=== PATIENT | male | born 1940 | race Caucasian/White ===

== ENCOUNTER → 2024-11-07 | Outpatient (CLI) | payer MEDICARE ==
[2024-11-07 13:13] LABS: African American GFR (CKD) 85 (>60 ml/min/1.73 sqM); Blood Urea Nitrogen 18 mg/dL (9-20); Non-African American GFR(CKD) 74 (>60 ml/min/1.73 sqM)
--- NOTE | 2024-11-07 14:44 | CT ---
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 C/o numb ness. TECHNIQUE: CTA scan of the head and neck is performed with IV Contrast, patient injected with 120 mL of Isovue 370, axial images are obtained, coronal and sagittal reformatted images are reviewed. 3D r econstructed images are created on an independent workstation and reviewed. CT DLP: 759.[address] CTDI: mGy Automated exposure control for dose reduction was used. NASCET criteria was used in interpretation of this exam? FINDINGS: There is marked diffuse arteriosclerotic calcifications involving the thoracic aortic arch and origin s of the brachiocephalic vessels as well as diffusely through the common carotid arteries and carotid bifurcations. There are moderate approximately 50% stenoses of the origins of the left subclavian artery and right subclavian artery. There is scattered calcification in the common carotid arteries but no significant stenosis. There are severe calcified plaque in the right carotid bifurcations. There is severe proximal ascendi ng percent hemodynamically significant stenoses of both the proximal right and left internal carotid arteries. There is evidence for calcified eccentric plaque with ulcerations. Vertebral arteries are patent. IMPRESSION: 1. Heavily calcified plaque involving the thoracic arch and origins of the brachiocephalic vessels re sulting in approximately 50% stenoses of the origin of the left subclavian and right subclavian arter ies. 2. Scattered moderate calcified plaque involving the common internal carotid arteries as well as the carotid bifurcations resulting in hemodynamically significant approximately 70% stenoses of the bilat eral proximal internal carotid arteries. The heavily calcified plaques appear to have central ulcerat ions. [facility], , 11/07/2024 2:42 PM
== END | disposition home or self-care (01) ==
LOC: RADCTMAIN 11:58
PROVIDERS: ATTEND Internal Medicine Interventional Cardiology
DX: I65.23 Occlusion and stenosis of bilateral carotid arteries (principal); I77.1 Stricture of artery
CPT/HCPCS: 82565; 84520; 70498; 36415; Q9967

== ENCOUNTER 2025-01-16 06:08 | Day surgery (SDC) | payer MEDICARE ==
[2025-01-13 14:39] VITALS: BMI 32.3
[~2025-01-16 06:08] MED LIST: ALPRAZolam 0.25 MG TAB PO PRN; ALPRAZolam 0.5 MG TAB PO PRN; ASPIRIN 325 MG TAB PO PRN; HEPARIN SODIUM,PORCINE (1 ML) 2,500 UNIT in SODIUM CHLORIDE 0.9% 250 ML IRRIGATION PRN; HEPARIN SODIUM,PORCINE 10,000 UNIT in SODIUM CHLORIDE 0.9% 1,000 ML IRRIGATION PRN; ZOLPIDEM 5 MG TAB PO PRN
[2025-01-16 06:42] LABS: Glucose,Whole Blood 138 mg/dL (70-110)
[2025-01-16] MEDS: SODIUM CHLORIDE 0.9% 1,000 ML IV ONE (06:45)
[2025-01-16] MEDS: IV FLUID CONTINUATION 1,000 ML IV ONE (06:45)
[2025-01-16] MEDS: SODIUM CHLORIDE 0.9% 1,000 ML in EMPTY BAG 1 BAG IV ONE (06:52)
[2025-01-16] MEDS: MIDAZOLAM 2 MG/2 ML VIAL IVP ONE (08:29)
[2025-01-16] MEDS: LIDOCAINE 1% INJ 10MG/ML (20 ML MDV) SQ ONE (08:41)
[2025-01-16] MEDS: HEPARIN SODIUM 1,000 UN/ML (10ML VL) IVP ONE (08:50)
[2025-01-16] MEDS: CLOPIDOGREL 75 MG TAB PO ONE (08:56)
[2025-01-16] MEDS: IOPAMIDOL-370 100ML BTL INJ ONE (09:38)
[2025-01-16] MEDS ORDERED: IPRATROPIUM BROMIDE 0.06% NASAL SPRAY (15 ML) EA NOSTRIL PRN (09:45)
[2025-01-16] MEDS ORDERED: NALOXONE 0.4 MG/ML 1 ML VIAL IVP PRN (09:46)
--- NOTE | 2025-01-16 09:51 | P.PCN ---
Date of Procedure: 01/16/25 Operative Findings: PERCUTANEOUS PERIPHERAL INTERVENTION Performing physician Bird Byers M.D. Procedure performed 1. Successful stenting of the left subclavian artery using 10 mm x 38 mm iCAST stent with reduction of stenosis from 9 9% to 0% with adjunctive use of IVUS 2. An aortic arch angiogram and left subclavian angiogram 3. Selective right common femoral artery angiogram and ultrasound-guided access of the right common femoral artery Indication Symptomatic 84-year-old gentleman with critical left subclavian stenosis Approach Right common femoral artery Complications None Level of sedation Moderate with a sedation time of 60 minutes Procedure description After attending informed consent the patient was brought to the cardiac lab where the right common femoral artery was cannulated using micropuncture technique under ultrasound guidance a micropuncture wire passed easily and init iated with a 6 Haitian subsequently 7 Haitian shuttle sheath 90 cm at the right common femoral artery with adjunctive use of stiff Glidewire. At that point we did an aortic arch angiogram using a 6 Haitian pigtail catheter with power injection and using digital subtraction. That revealed type III aortic arch with a critical disease involving the left subclavian artery. I did select the left subclavian artery using a JB2 catheter with 035 stiff Glidewire. Subsequently the wire was advanced into the distal left subclavian artery. Then I did selective left subclavian angiogram with injection through the sheath. Subsequently I did IVUS of the left subclavian artery which revealed heavily calcified vessel with a diameter around 10 mm. Predilatation was performed using 8 mm balloon before I deployed 8 mm x 38 mm stent which was iCAST stent which was postdilated using 10 mm balloon was final angiogram showing excellent angiographic results and the procedure was completed with no complication. Subsequently exchanged my long sheath into short sheath using 035 wire before I did selective right common femoral artery angiogram and close the groin using the Angio-Seal device Postprocedure management 1. Dual antiplatelet therapy 2. Aggressive cholesterol control 3. Risk factors modification 4. Follow-up with the patient
--- NOTE | 2025-01-16 10:15 | IR ---
EXAMINATION TYPE: IR precinct captain brachiocephalic DATE OF EXAM: 01/16/2025 CLINICAL HISTORY: Left arm weakness. TECHNIQUE: Fluoroscopy. COMPARISON: None. FINDINGS: Fluoroscopic guidance was provided during left subclavian stent insertion procedure perfor med by Dr. Byers. A total of 26.2 minutes of fluoroscopic time was utilized during the procedure and 73 spot images was acquired. Images show angiogram pictures. TOTAL DAP = 15.7 Gycm2. IMPRESSION: As Above. [facility], , 01/16/2025 10:12 AM
[2025-01-16 12:28] LABS: Glucose,Whole Blood 181 mg/dL (70-110)
[2025-01-16] MEDS: SODIUM CHLORIDE 0.9% 1,000 ML in EMPTY BAG 1 BAG IV SCH (12:32)
[2025-01-16 13:23] VITALS: RESP 14
[2025-01-16 14:08] VITALS: BP 123/65
[2025-01-16 14:11] VITALS: PULSE 69; TEMP 98.1
[2025-01-16 17:16] LABS: Glucose,Whole Blood 208 mg/dL (70-110)
[2025-01-16] MEDS: ALBUTEROL NEBULIZED 2.5 MG/3 ML INHALATION SCH (19:24)
[2025-01-16] MEDS: SYMBICORT 160-4.5 MCG INHALER INHALATION SCH (19:24)
[2025-01-16] MEDS ORDERED: MONTELUKAST 10 MG TAB PO SCH (21:00)
[2025-01-16] MEDS ORDERED: METOPROLOL TARTRATE 25 MG TAB PO SCH (21:00)
[2025-01-16] MEDS ORDERED: ATORVASTATIN 80 MG TAB PO SCH (21:00)
[2025-01-17] MEDS ORDERED: TIOTROPIUM 2.5 MCG INHALER INHALATION SCH (08:00)
[2025-01-17] MEDS ORDERED: FENOFIBRATE 54 MG TAB PO SCH (09:00)
[2025-01-17] MEDS ORDERED: ASPIRIN 81 MG PO SCH (09:00)
[2025-01-17] MEDS ORDERED: ATORVASTATIN 20 MG TAB PO SCH (09:00)
[2025-01-17] MEDS ORDERED: MULTIVITAMINS, THERA 1 EACH TAB PO SCH (09:00)
[2025-01-17] MEDS ORDERED: CYANOCOBALAMIN 500 MCG TAB PO SCH (09:00)
[2025-01-17] MEDS ORDERED: CLOPIDOGREL 75 MG TAB PO SCH (09:00)
== END 2025-01-16 19:53 | disposition home or self-care (01) ==
LOC: CATHCVL 06:08 → 6NMEDSUR 10:28 → CATHCVL 19:53
PROVIDERS: ATTEND Internal Medicine Interventional Cardiology
DX: I70.8 Atherosclerosis of other arteries (principal)
CPT/HCPCS: 99152; 99153; 76937; 36225; 37236; 37252; C1874; J2250; J2003; J1644; Q9967

== ENCOUNTER 2025-06-15 14:17 | Inpatient (IN) | payer MEDICARE ==
--- NOTE | 2025-06-15 15:11 | ED ---
GI Bleed HPI - General Chief complaint: GI Bleed Stated complaint: GI Bleed Time Seen by Provider: 06/15/25 14:31 Source: patient, EMS, RN notes reviewed Mode of arrival: EMS Limitations: no limitations - History of Present Illness Initial comments: This is an 84-year-old male with history including GI bleed, diverticulosis and DM presenting from [facility] via ER to ER transfer for GI bleed starting this morning. Patient states he awoke with sensation of impending bowel movement, passing a large amount of bright red blood in the toilet that had been ongoing prior to initial ER arrival. Following evaluation, patient states rectal bleeding had stopped, but due to no GI specialist available there, patient was transferred to [facility] for further evaluation and management. Patient endorses use of ASA 81 daily but denies use of Plavix or other blood thinners. Patient states bleeding has recurred since ER arrival at [facility]. Endorses history of bleeding GI polyp that required cauterization. Hemoglobin at [facility] 13.6. Patient denies fever, chills, dizziness, chest pain, dyspnea, significant abdominal pain, N/V, melena, urinary symptoms. MD complaint: gross hematochezia Onset/Timin -: days(s) Quality: painless Consistency: intermittent Context: history of GI bleed Associated Symptoms: denies other symptoms Treatments Prior to Arrival: none - Related Data Home Medications Medication Instructions Recorded Confirmed Albuterol Sulfate [Proair Hfa] 2 puff INHALATION RT-QID PRN 02/25/18 06/15/25 Aspirin [Adult Low Dose Aspirin EC] 81 mg PO DAILY 02/25/18 06/15/25 Cyanocobalamin [Vitamin B-12] 5,000 mcg PO DAILY 02/25/18 06/15/25 Fenofibrate 54 mg PO DAILY 02/25/18 06/15/25 Ipratropium [place] 0.06%Nasal 2 spray EA NOSTRIL DAILY 02/25/18 06/15/25 [Atrovent Nasal 0.06%] Meloxicam 15 mg PO DAILY PRN 02/25/18 06/15/25 Metoprolol Tartrate 25 mg PO BID 02/25/18 06/15/25 Montelukast [Singulair] 10 mg PO HS 02/25/18 06/15/25 Simvastatin 40 mg PO DAILY 02/25/18 06/15/25 Fluticasone/Umeclidin/Vilanter 1 puff INHALATION RT-DAILY 01/02/25 06/15/25 [Trelegy Ellipta 100-62.5-25] Cetirizine HCl [Zyrtec] 10 mg PO DAILY PRN 06/15/25 06/15/25 Levothyroxine Sodium [Synthroid] 50 mcg PO DAILY 06/15/25 06/15/25 Mv-Min/Folic/K1/Lycopen/Lutein 1 tab PO DAILY 06/15/25 06/15/25 [Centrum Silver Men Tablet] Nitroglycerin Sl Tabs [Nitrostat] 0.4 mg SUBLINGUAL Q5M PRN 06/15/25 06/15/25 metFORMIN HCL [Glucophage] 500 mg PO HS 06/15/25 06/15/25 metFORMIN HCL [Glucophage] 750 mg PO BID 06/15/25 06/15/25 Allergies Allergy/AdvReac Type Severity Reaction Status Date / Time No Known Allergies Allergy Verified 06/15/25 15:44 Review of Systems ROS Statement: Those systems with pertinent positive or pertinent negative responses have been documented in the HPI. ROS Other: All systems not noted in ROS Statement are negative. Past Medical History Past Medical History: Diabetes Mellitus, GI Bleed, Hyperlipidemia, Hypertension, Prostate Disorder, Sleep Apnea/CPAP/BIPAP Additional Past Medical History / Comment(s): seasonal allergies, hx rectal b leed with diverticulosis, neuropathy julius feet,no cpap used, NIDDM History of Any Multi-Drug Resistant Organisms: None Reported Past Surgical History: Heart Catheterization With Stent, Joint Replacement, Orthopedic Surgery Additional Past Surgical History / Comment(s): repair torn rotator cuff julius., prostate surgery,(turp) colonoscopy with cauterization , julius hip replaced Past Anesthesia/Blood Transfusion Reactions: No Reported Reaction Date of Last Stent Placement:: 2009 Past Psychological History: No Psychological Hx Reported Smoking Status: Former smoker Past Alcohol Use History: Occasional Past Drug Use History: None Reported - Past Family History Mother Family Medical History: No Reported History General Exam Limitations: no limitations General appearance: alert, in no apparent distress Head exam: Present: atraumatic, normocephalic, normal inspection Eye exam: Present: normal appearance, PERRL, EOMI. Absent: scleral icterus, conjunctival injection, periorbital swelling ENT exam: Present: normal exam, mucous membranes moist Neck exam: Present: normal inspection. Absent: tenderness, meningismus, lymphadenopathy Respiratory exam: Present: normal lung sounds bilaterally. Absent: respiratory distress, wheezes, rales, rhonchi, stridor Cardiovascular Exam: Present: regular rate, normal rhythm, normal heart sounds. Absent: systolic murmur, diastolic murmur, rubs, gallop, clicks GI/Abdominal exam: Present: soft, tenderness (Patient notes minor periumbilical TTP without guarding), normal bowel sounds. Absent: distended, guarding, rebound, rigid Rectal exam: Present: normal rectal tone, heme (+) stool, bloody stool. Absent: black stool, fecal impaction, hemorrhoids, mass, tenderness Extremities exam: Present: normal inspection, full ROM, normal capillary refill. Absent: tenderness, pedal edema, joint swelling, calf tenderness Back exam: Present: normal inspection Neurological exam: Present: alert, oriented X3, CN II-XII intact Psychiatric exam: Present: normal affect, normal mood Skin exam: Present: warm, dry, intact, normal color. Absent: rash Course Vital Signs 06/15/25 06/15/25 14:22 16:25 Temperature 97.7 F Pulse Rate 84 75 Respiratory 18 18 Rate Blood Pressure 109/63 107/58 O2 Sat by Pulse 97 96 Oximetry Medical Decision Making - Medical Decision Making Was pt. sent in by a medical professional or institution (ARMEN Gan, PROCEDURES NURSE, urgent care, hospital, or skilled nursing...) When possible be specific @ -[facility] Did you speak to anyone other than the patient for history (EMS, parent, family, police, friend...)? What history was obtained from this source @ -No Did you review nursing and triage notes (agree or disagree)? Why? @ -I reviewed and agree with nursing and triage notes Were old charts reviewed (outside hosp., previous admission, EMS record, old EKG, old radiological studies, urgent care reports/EKG's, skilled nursing records)? Report findings @ -No old charts were reviewed Differential Diagnosis (chest pain, altered mental status, abdominal pain women, abdominal pain men, vaginal bleeding, weakness, fever, dyspnea, syncope, headache, dizziness, GI bleed, back pain, seizure, CVA, palpatations, mental health, musculoskeletal)? @ -Differential GI Bleed: Esophageal varices, aortoenteric fistula, Crissy-Green, gastritis, peptic ulcer disease, diverticulosis, inflammatory bowel disease, hemorrhoids, fissure, colitis, malignancy, Meckel's diverticulum, this is not meant to be an all- inclusive list. EKG interpreted by me (3pts min.). @ -Not done X-rays interpreted by me (1pt min.). @ -None done CT interpreted by me (1pt min.). @ -None done U/S interpreted by me (1pt. min.). @ -None done What testing was considered but not performed or refused? (CT, X-rays, U/S, labs)? Why? @ -None What meds were considered but not given or refused? Why? @ -None Did you discuss the management of the patient with other professionals (naomi stacy i.e. , PA, PROCEDURES NURSE, lab, RT, psych nurse, social work associate, technical writing lead/mgr, teacher, security officers and guards, telephonic case manager)? Give summary @ -Spoke to Dr. Castellanos who advised to contact Dr. Frazier and Dr. Foley. Dr. Frazier notified who advised consideration for ICU admission due to ongoing BRBPR. Dr. Foley also contacted and advised of patient condition. Was smoking cessation discussed for >3mins.? @ -No Was critical care preformed (if so, how long)? @ -No Were there social determinants of health that impacted care today? How? (Homelessness, low income, unemployed, alcoholism, drug addiction, transportation, low edu. Level, literacy, decrease access to med. care, half-way, rehab)? @ -No Was there de-escalation of care discussed even if they declined (Discuss DNR or withdrawal of care, Hospice)? DNR status @ -No What co-morbidities impacted this encounter? (DM, HTN, Smoking, COPD, CAD, Cancer, CVA, ARF, Chemo, Hep., AIDS, mental health diagnosis, sleep apnea, morbid obesity)? @ -None Was patient admitted / discharged? Hospital course, mention meds given and route, prescriptions, significant lab abnormalities, going to OR and other pertinent info. @ -Lab work notable for hemoglobin 11.9, which is down from 13.[address] [facility]. BUN 28. Stool occult blood positive. No obvious rectal bleeding or external hemorrhoid on examination with blood noted on fingertip. Spoke to Dr. Castellanos from [facility] who advised to contact both Dr. Frazier and Dr. Foley regarding patient. Both physicians were subsequently contacted and advised of patient's condition. Patient is asymptomatic at this time, only noting ongoing bright red blood per rectum. Discussed patient with Dr. Freeman. Undiagnosed new problem with uncertain prognosis? @ -No Drug Therapy requiring intensive monitoring for toxicity (Heparin, Nitro, Insulin, Cardizem)? @ -No Were any procedures done? @ -No Diagnosis/symptom? @ -Bright red blood per rectum Acute, or Chronic, or Acute on Chronic? @ -Acute Uncomplicated (without systemic symptoms) or Complicated (systemic symptoms)? @ -Uncomplicated Side effects of treatment? @ -No Exacerbation, Progression, or Severe Exacerbation? @ -No Poses a threat to life or bodily function? How? (Chest pain, USA, DC, pneumonia, PE, COPD, DKA, ARF, appy, cholecystitis, CVA, Diverticulitis, Homicidal, Suicidal, threat to staff... and all critical care pts) @ -No - Lab Data Result diagrams: 06/15/25 15:34 06/15/25 15:34 Lab Results 06/15/25 06/15/25 06/15/25 Range/Units 15:31 15:34 15:34 WBC 9.29 (4.50-10.00) 10*3/uL RBC 3.80 L (4.40-5.60) 10*6/uL Hgb 11.9 L (13.0-17.0) g/dL Hct 35.9 L (39.6-50.0) % MCV 94.5 (80.0-97.0) fL MCH 31.3 (27.0-32.0) pg MCHC 33.1 (32.0-37.0) g/dL Plt Count 238 (140-440) 10*3/uL MPV 10.4 (9.5-12.2) fL Immature Gran % (Auto) 0.4 % Neutrophils % 66.2 % Lymphocytes % 23.7 % Monocytes % 7.4 % Eosinophils % 1.7 % Basophils % 0.6 % Immature Gran # 0.04 (0.00-0.04) 10*3/uL Neutrophils # 6.14 (1.80-7.70) 10*3/uL Lymphocytes # 2.20 (0.90-5.00) 10*3/uL Monocytes # 0.69 (0.20-1.00) 10*3/uL Eosinophils # 0.16 (0.04-0.35) 10*3/uL Basophils # 0.06 (0.00-0.10) 10*3/uL Manual Slide Review Performed Immature Plt Fraction 4.1 (1.1-6.1) % PT (10.0-12.5) sec INR (<1.2) APTT (22.0-30.0) sec Sodium (137-145) mmol/L Potassium (3.5-5.1) mmol/L Chloride (98-107) mmol/L Carbon Dioxide (22-30) mmol/L Anion Gap mmol/L BUN (9-20) mg/dL Creatinine (0.66-1.25) mg/dL Est GFR (CKD-EPI)AfAm (>60 ml/min/1.73 sqM) Est GFR (CKD-EPI)NonAf (>60 ml/min/1.73 sqM) Glucose (74-99) mg/dL POC Glucose (mg/dL) (70-110) mg/dL POC Glu Digital Operations Analyst ID Calcium (8.4-10.2) mg/dL Total Bilirubin (0.2-1.3) mg/dL AST (17-59) U/L ALT (4-49) U/L Alkaline Phosphatase (38-126) U/L Total Protein (6.3-8.2) g/dL Albumin (3.5-5.0) g/dL Stool Occult Blood Positive (Negative) Blood Type A Negative Blood Type Recheck No Previous Record Bld Type Recheck Status [facility] ONLY 06/15/25 06/15/25 06/15/25 Range/Units 15:34 16:21 16:59 WBC (4.50-10.00) 10*3/uL RBC (4.40-5.60) 10*6/uL Hgb (13.0-17.0) g/dL Hct (39.6-50.0) % MCV (80.0-97.0) fL MCH (27.0-32.0) pg MCHC (32.0-37.0) g/dL Plt Count (140-440) 10*3/uL MPV (9.5-12.2) fL Immature Gran % (Auto) % Neutrophils % % Lymphocytes % % Monocytes % % Eosinophils % % Basophils % % Immature Gran # (0.00-0.04) 10*3/uL Neutrophils # (1.80-7.70) 10*3/uL Lymphocytes # (0.90-5.00) 10*3/uL Monocytes # (0.20-1.00) 10*3/uL Eosinophils # (0.04-0.35) 10*3/uL Basophils # (0.00-0.10) 10*3/uL Manual Slide Review Immature Plt Fraction (1.1-6.1) % PT 11.2 (10.0-12.5) sec INR 1.0 (<1.2) APTT 18.9 L (22.0-30.0) sec Sodium 139 (137-145) mmol/L Potassium 4.9 (3.5-5.1) mmol/L Chloride 106 (98-107) mmol/L Carbon Dioxide 24 (22-30) mmol/L Anion Gap 9 mmol/L BUN 28 H (9-20) mg/dL Creatinine 1.02 (0.66-1.25) mg/dL Est GFR (CKD-EPI)AfAm 78 (>60 ml/min/1.73 sqM) Est GFR (CKD-EPI)NonAf 67 (>60 ml/min/1.73 sqM) Glucose 129 H (74-99) mg/dL POC Glucose (mg/dL) 143 H (70-110) mg/dL POC Glu Digital Operations Analyst ID Belval Christiana Calcium 9.2 (8.4-10.2) mg/dL Total Bilirubin 0.7 (0.2-1.3) mg/dL AST 21 (17-59) U/L ALT 18 (4-49) U/L Alkaline Phosphatase <20 L (38-126) U/L Total Protein 6.1 L (6.3-8.2) g/dL Albumin 3.8 (3.5-5.0) g/dL Stool Occult Blood (Negative) Blood Type Blood Type Recheck Bld Type Recheck Status Disposition Clinical Impression: Hematochezia Disposition: ADMITTED IP TO THIS HOSP Condition: Fair Instructions (If sedation given, give patient instructions): Gastrointestinal Bleeding (ED) Referrals: Vikas Holcomb MD [Primary Care Provider] - 1-2 days Time of Disposition: 15:10 Decision Date: 06/15/25 Decision Time: 15:10
[2025-06-15 15:45] LABS: Basophils # (A) 0.06 10*3/uL (0.00-0.10); Basophils % (A) 0.6 %; Eosinophils # (A) 0.16 10*3/uL (0.04-0.35); Eosinophils % (A) 1.7 %; HCT 35.9 % (39.6-50.0); HGB 11.9 g/dL (13.0-17.0); Immature Platelet Fraction 4.1 % (1.1-6.1); Lymphocytes # (A) 2.20 10*3/uL (0.90-5.00); Lymphocytes % (A) 23.7 %; MCH 31.3 pg (27.0-32.0); MCHC 33.1 g/dL (32.0-37.0); MCV 94.5 fL (80.0-97.0); Monocytes # (A) 0.69 10*3/uL (0.20-1.00); Monocytes % (A) 7.4 %; Neutrophils # (A) 6.14 10*3/uL (1.80-7.70); Neutrophils % (A) 66.2 %; RBC 3.80 10*6/uL (4.40-5.60); RDW 13.5 % (11.5-14.5); WBC 9.29 10*3/uL (4.50-10.00)
[2025-06-15 16:06] LABS: Platelet Count 238 10*3/uL (140-440)
[2025-06-15 16:08] LABS: ALT 18 U/L (4-49); AST 21 U/L (17-59); African American GFR (CKD) 78 (>60 ml/min/1.73 sqM); Albumin 3.8 g/dL (3.5-5.0); Alkaline Phosphatase <20 U/L (38-126); Anion Gap 9 mmol/L; Blood Urea Nitrogen 28 mg/dL (9-20); Calcium 9.2 mg/dL (8.4-10.2); Carbon Dioxide 24 mmol/L (22-30); Chloride 106 mmol/L (98-107); Glucose 129 mg/dL (74-99); Non-African American GFR(CKD) 67 (>60 ml/min/1.73 sqM); Potassium 4.9 mmol/L (3.5-5.1); Sodium 139 mmol/L (137-145); Total Protein 6.1 g/dL (6.3-8.2)
[2025-06-15] MEDS: SODIUM CHLORIDE 0.9% 1,000 ML IV SCH (16:24)
[2025-06-15] MEDS ORDERED: LORATADINE 10 MG TAB PO PRN (16:38)
[2025-06-15] MEDS ORDERED: NITROGLYCERIN SL TABS 0.4 MG TAB SUBLINGUAL PRN (16:38)
[2025-06-15] MEDS ORDERED: ALBUTEROL NEBULIZED 2.5 MG/3 ML INHALATION PRN (16:38)
[2025-06-15] MEDS ORDERED: DEXTROSE 50% SYRINGE 50 ML IVP PRN ×2 (16:39)
[2025-06-15] MEDS ORDERED: HYDROcodone/APAP 5-325MG 1 EACH TAB PO PRN (16:39)
[2025-06-15 16:59] LABS: INR 1.0 (<1.2); Prothrombin Time 11.2 sec (10.0-12.5)
[2025-06-15 17:01] LABS: Glucose,Whole Blood 143 mg/dL (70-110)
[2025-06-15] MEDS: INSULIN LISPRO (HumaLOG) 100 UNIT/ML 10 mL VL SQ SCH (17:01)
[2025-06-15] MEDS: PANTOPRAZOLE 40 MG/10 ML VIAL IVP SCH (17:04)
[2025-06-15 17:19] LABS: Partial Thromboplastin Time 18.9 sec (22.0-30.0)
[2025-06-15] MEDS ORDERED: NALOXONE 0.4 MG/ML 1 ML VIAL IV PRN (17:52)
[2025-06-15 20:09] LABS: Basophils # (A) 0.05 10*3/uL (0.00-0.10); Basophils % (A) 0.4 %; Eosinophils # (A) 0.18 10*3/uL (0.04-0.35); Eosinophils % (A) 1.6 %; HCT 36.5 % (39.6-50.0); HGB 12.1 g/dL (13.0-17.0); Lymphocytes # (A) 2.83 10*3/uL (0.90-5.00); Lymphocytes % (A) 25.3 %; MCH 31.9 pg (27.0-32.0); MCHC 33.2 g/dL (32.0-37.0); MCV 96.3 fL (80.0-97.0); Monocytes # (A) 0.83 10*3/uL (0.20-1.00); Monocytes % (A) 7.4 %; Neutrophils # (A) 7.22 10*3/uL (1.80-7.70); Neutrophils % (A) 64.6 %; Platelet Count 243 10*3/uL (140-440); RBC 3.79 10*6/uL (4.40-5.60); RDW 13.3 % (11.5-14.5); WBC 11.19 10*3/uL (4.50-10.00)
[2025-06-15 20:29] LABS: ALT 18 U/L (4-49); AST 21 U/L (17-59); African American GFR (CKD) 80 (>60 ml/min/1.73 sqM); Albumin 3.7 g/dL (3.5-5.0); Alkaline Phosphatase <20 U/L (38-126); Anion Gap 10 mmol/L; Blood Urea Nitrogen 27 mg/dL (9-20); Calcium 8.8 mg/dL (8.4-10.2); Carbon Dioxide 22 mmol/L (22-30); Chloride 106 mmol/L (98-107); Glucose 129 mg/dL (74-99); Non-African American GFR(CKD) 69 (>60 ml/min/1.73 sqM); Potassium 4.6 mmol/L (3.5-5.1); Sodium 138 mmol/L (137-145); Total Protein 6.0 g/dL (6.3-8.2)
[2025-06-15 22:03] LABS: Glucose,Whole Blood 125 mg/dL (70-110)
[2025-06-15] MEDS: METOPROLOL TARTRATE 25 MG TAB PO SCH (22:06)
[2025-06-15] MEDS: MONTELUKAST 10 MG TAB PO SCH (22:07)
[2025-06-16] MEDS: metFORMIN 500 MG TAB PO SCH ×2
[2025-06-16 00:26] LABS: HCT 37.7 % (39.6-50.0); HGB 12.4 g/dL (13.0-17.0); MCH 31.9 pg (27.0-32.0); MCHC 32.9 g/dL (32.0-37.0); MCV 96.9 fL (80.0-97.0); Platelet Count 258 10*3/uL (140-440); RBC 3.89 10*6/uL (4.40-5.60); RDW 13.4 % (11.5-14.5); WBC 11.25 10*3/uL (4.50-10.00)
--- NOTE | 2025-06-16 04:12 | P.CNPUL ---
History of Present Illness Consult date: 06/16/25 Requesting physician: Noe Dior Reason for consult: other (GI bleed) Chief complaint: Transfer from [facility] History of present illness: Patient is an 84-year-old male with past medical history significant for GI bleed, diverticulosis, colon polyps, CAD with previous stent to the RCA, left subclavian artery stenosis with previous stent, carotid artery stenosis. He also sees Dr. Varela in the pulmonary office for severe COPD. He has an FEV1 48% of predicted. Maintained on DuoNebs [id number] as well as Trelegy inhaler. Transferred from [facility] yesterday after for rectal bleeding. Having multiple large bright red bowel movements. He does take aspirin and Plavix at home. Denies any other anticoagulants or NSAIDs. Denies any nausea, vomiting, hematemesis. Denies any abdominal pain. Blood pressures remain stable. Nontachycardic. He has had an additional 2 bright red bowel movements while at our facility. Has not required any blood product transfusions. Hemoglobin stable at 12.4 g/dL. Most recent labs including a CBC with a WBC count of 11.25, hemoglobin 12.4, platelets 258. CMP: Sodium 138, potassium 4.6, chloride 106, serum bicarb 22, BUN 27, creatinine 1, glucose 129. LFTs unremarkable. Normal saline infusing at 75 mm/h. Patient currently being evaluated in the intensive care unit. Resting comfortably on room air. Asymptomatic. Nontachycardic. Blood pressure 119/54 mmHg. Review of Systems REVIEW OF SYSTEMS: CONSTITUTIONAL: Denies any recent significant weight loss or weight gain. EYES: Denies change in vision. EARS, NOSE, MOUTH, THROAT: Denies headaches, denies sore throat. CARDIOVASCULAR: Denies chest pain, palpitations or syncopal episodes. RESPIRATORY: Denies shortness of breath, cough, congestion or hemoptysis. GASTROINTESTINAL: See HPI GENITOURINARY: Denies hematuria, denies infections. MUSKULOSKELETAL: Denies pain, denies swelling. INTEGUMENTARY: Denies rash, denies eczema. NEUROLOGICAL: Denies recent memory loss, no recent seizure activity. PSYCHIATRIC: Denies anxiety, denies depression. HEMATOLOGIC/LYMPHATIC: Denies anemia, denies enlarged lymph node Past Medical History Past Medical History: Diabetes Mellitus, GI Bleed, Hyperlipidemia, Hypertension, Prostate Disorder, Sleep Apnea/CPAP/BIPAP Additional Past Medical History / Comment(s): seasonal allergies, hx rectal bleed with diverticulosis, neuropathy julius feet,no cpap used, NIDDM History of Any Multi-Drug Resistant Organisms: None Reported Past Surgical History: Heart Catheterization With Stent, Joint Replacement, Orthopedic Surgery Additional Past Surgical History / Comment(s): Heart cath with carotid stent 01/16/25 (Dr. Byers), repair torn rotator cuff julius., prostate surgery(turp), colonoscopy with cauterization , julius hip replaced, B/L cateracts removed Past Anesthesia/Blood Transfusion Reactions: No Reported Reaction Date of Last Stent Placement:: 2024 Past Psychological History: No Psychological Hx Reported Smoking Status: Former smoker Past Alcohol Use History: Occasional Additional Past Alcohol Use History / Comment(s): smoked since age 13 1ppd quit age 69 Past Drug Use History: None Reported - Past Family History Mother Family Medical History: No Reported History Medications and Allergies Home Medications Medication Instructions Recorded Confirmed Type Albuterol Sulfate [Proair Hfa] 2 puff INHALATION RT-QID PRN 02/25/18 06/15/25 History Aspirin [Adult Low Dose Aspirin EC] 81 mg PO DAILY 02/25/18 06/15/25 History Cyanocobalamin [Vitamin B-12] 5,000 mcg PO DAILY 02/25/18 06/15/25 History Fenofibrate 54 mg PO DAILY 02/25/18 06/15/25 History Ipratropium [place] 0.06%Nasal 2 spray EA NOSTRIL DAILY 02/25/18 06/15/25 H istory [Atrovent Nasal 0.06%] Meloxicam 15 mg PO DAILY PRN 02/25/18 06/15/25 History Metoprolol Tartrate 25 mg PO BID 02/25/18 06/15/25 History Montelukast [Singulair] 10 mg PO HS 02/25/18 06/15/25 History Simvastatin 40 mg PO DAILY 02/25/18 06/15/25 History Fluticasone/Umeclidin/Vilanter 1 puff INHALATION RT-DAILY 01/02/25 06/15/25 History [Trelegy Ellipta 100-62.5-25] Cetirizine HCl [Zyrtec] 10 mg PO DAILY PRN 06/15/25 06/15/25 History Clopidogrel [Plavix] 75 mg PO DAILY 06/15/25 06/15/25 History Levothyroxine Sodium [Synthroid] 50 mcg PO DAILY 06/15/25 06/15/25 History Mv-Min/Folic/K1/Lycopen/Lutein 1 tab PO DAILY 06/15/25 06/15/25 History [Centrum Silver Men Tablet] Nitroglycerin Sl Tabs [Nitrostat] 0.4 mg SUBLINGUAL Q5M PRN 06/15/25 06/15/25 History metFORMIN HCL [Glucophage] 500 mg PO HS 06/15/25 06/15/25 History metFORMIN HCL [Glucophage] 750 mg PO BID 06/15/25 06/15/25 History Allergies Allergy/AdvReac Type Severity Reaction Status Date / Time No Known Allergies Allergy Verified 06/15/25 15:44 Physical Exam Vitals: Vital Signs Temp Pulse Resp BP Pulse Ox 06/16/25 03:00 67 15 119/54 91 L 06/16/25 02:30 68 16 130/54 92 L 06/16/25 02:00 67 15 122/58 92 L 06/16/25 01:30 66 16 110/54 93 L 06/16/25 01:00 66 15 107/53 94 L 06/16/25 00:30 69 13 143/72 93 L 06/16/25 00:00 97.9 F 71 15 108/61 94 L 06/15/25 23:30 69 18 116/56 93 L 06/15/25 23:00 71 16 118/62 92 L 06/15/25 22:30 78 15 110/68 93 L 06/15/25 22:00 75 18 124/59 93 L 06/15/25 21:30 77 19 120/56 93 L 06/15/25 21:00 73 17 126/58 96 06/15/25 20:30 67 16 138/73 96 06/15/25 20:00 98.6 F 77 18 144/76 95 06/15/25 19:25 86 18 102/70 99 06/15/25 18:21 75 18 112/55 96 06/15/25 16:25 75 18 107/58 96 06/15/25 14:22 97.7 F 84 18 109/63 97 Intake and Output 07/06/15/25 06/16/25 14:59 22:59 06:59 Intake Total 540 300 Output Total 0 0 Balance 540 300 Intake: IV 300 Sodium Chloride 0.9% 1, 300 000 ml @ 75 mls/hr IV . [id number] [facility] Rx#:[id number] Oral 540 Output: Urine 0 0 Other: Voiding Method Toilet Toilet # Voids 0 # Bowel Movements 0 0 Weight 88.451 kg 88.451 kg GENERAL EXAM: Alert, 84-year-old male, comfortable in no apparent distress. HEAD: Normocephalic and atraumatic EYES: Normal reaction of pupils, equal size. NOSE: Clear with pink turbinates. THROAT: No erythema or exudates. NECK: No masses, no JVD. CHEST: No chest wall deformity. LUNGS: Equal air entry with no crackles, wheeze, rhonchi or dullness. On room air. No conversational dyspnea or accessory muscle use.. CVS: S1 and S2 normal with no audible murmur, regular rhythm. No extra heart sounds ABDOMEN: No hepatosplenomegaly, active bowel sounds, no guarding or rigidity. SPINE: No scoliosis or deformity SKIN: No rashes CENTRAL NERVOUS SYSTEM: No focal deficits, tone is normal in all 4 extremities. EXTREMITIES: There is no peripheral edema, clubbing, or cyanosis. Peripheral pulses are intact. Results - Laboratory Findings CBC and BMP: 06/16/25 00:00 06/15/25 19:53 PT/INR, D-dimer PT 11.2 sec (10.0-12.5) 06/15/25 16:21 INR 1.0 (<1.2) 06/15/25 16:21 Abnormal lab findings: Abnormal Labs 06/15/25 06/15/25 06/15/25 15:34 15:34 16:21 WBC RBC 3.80 L Hgb 11.9 L Hct 35.9 L Immature Gran # APTT 18.9 L BUN 28 H Glucose 129 H POC Glucose (mg/dL) Alkaline Phosphatase <20 L Total Protein 6.1 L 06/15/25 06/15/25 06/15/25 16:59 19:53 19:53 WBC 11.19 H RBC 3.79 L Hgb 12.1 L Hct 36.5 L Immature Gran # 0.08 H APTT BUN 27 H Glucose 129 H POC Glucose (mg/dL) 143 H Alkaline Phosphatase <20 L Total Protein 6.0 L 06/15/25 06/16/25 22:01 00:00 WBC 11.25 H RBC 3.89 L Hgb 12.4 L Hct 37.7 L Immature Gran # APTT BUN Glucose POC Glucose (mg/dL) 125 H Alkaline Phosphatase Total Protein Assessment and Plan Assessment: Acute lower GI bleed History of diverticulosis History of colon polyps History of CAD with previous stent of RCA History of left subclavian artery stenosis with previous stent History of carotid artery stenosis Hypertension History of hyperlipidemia Diabetes mellitus type 2 Severe chronic obstructive pulmonary disease, with an FEV1 48% of predicted, not in exacerbation Plan: Patient's hemodynamics have remained stable Has not required any blood product transfusions Hemoglobin stable at 12.4 g/dL Continue to monitor H&H and transfuse for hemoglobin less than 7 g/dL GI is consulted Resume COPD maintenance medications We will continue to follow I have personally seen and examined the patient, performed the documentation and the assessment and plan as written. Number of minutes spent on the visit:20 Time with Patient: Greater than 30
[2025-06-16 06:26] LABS: Basophils # (A) 0.04 10*3/uL (0.00-0.10); Basophils % (A) 0.5 %; Eosinophils # (A) 0.19 10*3/uL (0.04-0.35); Eosinophils % (A) 2.4 %; HCT 34.0 % (39.6-50.0); HGB 11.2 g/dL (13.0-17.0); Lymphocytes # (A) 2.10 10*3/uL (0.90-5.00); Lymphocytes % (A) 26.5 %; MCH 31.5 pg (27.0-32.0); MCHC 32.9 g/dL (32.0-37.0); MCV 95.8 fL (80.0-97.0); Monocytes # (A) 0.74 10*3/uL (0.20-1.00); Monocytes % (A) 9.3 %; Neutrophils # (A) 4.79 10*3/uL (1.80-7.70); Neutrophils % (A) 60.4 %; Platelet Count 221 10*3/uL (140-440); RBC 3.55 10*6/uL (4.40-5.60); RDW 13.3 % (11.5-14.5); WBC 7.93 10*3/uL (4.50-10.00)
[2025-06-16] MEDS: LEVOTHYROXINE 50 MCG TAB PO SCH (06:28)
[2025-06-16 06:37] LABS: ALT 16 U/L (4-49); AST 19 U/L (17-59); African American GFR (CKD) 84 (>60 ml/min/1.73 sqM); Albumin 3.3 g/dL (3.5-5.0); Alkaline Phosphatase <20 U/L (38-126); Anion Gap 7 mmol/L; Blood Urea Nitrogen 25 mg/dL (9-20); Calcium 8.5 mg/dL (8.4-10.2); Carbon Dioxide 24 mmol/L (22-30); Chloride 106 mmol/L (98-107); Glucose 125 mg/dL (74-99); Non-African American GFR(CKD) 73 (>60 ml/min/1.73 sqM); Potassium 4.0 mmol/L (3.5-5.1); Sodium 137 mmol/L (137-145); Total Protein 5.4 g/dL (6.3-8.2)
[2025-06-16] MEDS: CYANOCOBALAMIN 500 MCG TAB PO SCH (08:34)
[2025-06-16] MEDS: ATORVASTATIN 20 MG TAB PO SCH (08:35)
[2025-06-16] MEDS: IPRATROPIUM BROMIDE 0.06% NASAL SPRAY (15 ML) EA NOSTRIL SCH (10:10)
[2025-06-16] MEDS: FENOFIBRATE 54 MG TAB PO SCH (10:10)
--- NOTE | 2025-06-16 10:54 | P.CONS ---
History of Present Illness - Reason for Consult Consult date: 06/16/25 GI bleed Requesting physician: Damaris Castellanos - Chief Complaint Rectal bleeding - History of Present Illness This a pleasant 84-year-old male with multiple comorbidities including coronary artery disease with cardiac stent, recent subclavian artery stent placed in December of this year, COPD, diabetes mellitus, hyperlipidemia, hypertension, prostate disorder with history of lower GI bleed about 10 years ago. Patient presented to the emergency department as a transfer from [facility] yesterday evening for lower GI bleed. Patient had multiple episodes of bright red blood per rectum with the last one being yesterday evening around 8 PM. Patient reports it as pressure and then bleeding but denies any abdominal pain or cramping. He is on aspirin 81 mg daily and Plavix 75 mg daily for coronary artery disease and recent subclavian artery stent. Patient states his last colonoscopy was about 5 to 6 years ago. He states that he had a similar episode few years ago where he had bleeding and underwent colonoscopy and was noted to have polyps that were bleeding that he reports was cauterized. He states this was done by Dr. Foley at [facility]. Patient with mild leukocytosis on admission hemoglobin of 12.1 with a drop today to 11.2 and an elevated BUN at 25. Denies any nausea or vomiting. He had no imaging done at [facility] and no imaging done here. Again currently denies any abdominal pain, nausea or vomiting. Review of Systems REVIEW OF SYSTEMS: CARDIOPULMONARY: No chest pain or shortness of breath. Gastrointestinal: No abdominal pain. No nausea or vomiting. No hematemesis, coffee-ground emesis. Positive for rectal bleeding, bright red blood last at 8 PM. GENITOURINARY: No dysuria or hematuria. MUSCULOSKELETAL: Reports normal range of motion. SKIN: No rashes. No jaundice. ENDOCRINE: No chills, fevers. No excessive weight gain or loss. No polydipsia or polyuria. PSYCHIATRIC: Unremarkable. NEUROLOGY: No change in mental status. Denies dizziness, headache. ENT: Vision unremarkable. CONSTITUTIONAL: No recent weight loss. No fever, chills, night sweats. Past Medical History Past Medical History: Diabetes Mellitus, GI Bleed, Hyperlipidemia, Hypertension, Prostate Disorder, Sleep Apnea/CPAP/BIPAP Additional Past Medical History / Comment(s): seasonal allergies, hx rectal bleed with diverticulosis, neuropathy julius feet,no cpap used, NIDDM History of Any Multi-Drug Resistant Organisms: None Reported Past Surgical History: Heart Catheterization With Stent, Joint Replacement, Orthopedic Surgery Additional Past Surgical History / Comment(s): Heart cath with carotid stent 01/16/25 (Dr. Byers), repair torn rotator cuff julius., prostate surgery(turp), colonoscopy with cauterization , julius hip replaced, B/L cateracts removed Past Anesthesia/Blood Transfusion Reactions: No Reported Reaction Date of Last Stent Placement:: 2024 Past Psychological History: No Psychological Hx Reported Smoking Status: Former smoker Past Alcohol Use History: Occasional Additional Past Alcohol Use History / Comment(s): smoked since age 13 1ppd quit age 69 Past Drug Use History: None Reported - Past Family History Mother Family Medical History: No Reported History Medications and Allergies Home Medications Medication Instructions Recorded Confirmed Type Albuterol Sulfate [Proair Hfa] 2 puff INHALATION RT-QID PRN 02/25/18 06/15/25 History Aspirin [Adult Low Dose Aspirin EC] 81 mg PO DAILY 02/25/18 06/15/25 History Cyanocobalamin [Vitamin B-12] 5,000 mcg PO DAILY 02/25/18 06/15/25 History Fenofibrate 54 mg PO DAILY 02/25/18 06/15/25 History Ipratropium [place] 0.06%Nasal 2 spray EA NOSTRIL DAILY 02/25/18 06/15/25 History [Atrovent Nasal 0.06%] Meloxicam 15 mg PO DAILY PRN 02/25/18 06/15/25 History Metoprolol Tartrate 25 mg PO BID 02/25/18 06/15/25 History Montelukast [Singulair] 10 mg PO HS 02/25/18 06/15/25 History Simvastatin 40 mg PO DAILY 02/25/18 06/15/25 History Fluticasone/Umeclidin/Vilanter 1 puff INHALATION RT-DAILY 01/02/25 06/15/25 History [Trelegy Ellipta 100-62.5-25] Cetirizine HCl [Zyrtec] 10 mg PO DAILY PRN 06/15/25 06/15/25 History Clopidogrel [Plavix] 75 mg PO DAILY 06/15/25 06/15/25 History Levothyroxine Sodium [Synthroid] 50 mcg PO DAILY 06/15/25 06/15/25 History Mv-Min/Folic/K1/Lycopen/Lutein 1 tab PO DAILY 06/15/25 06/15/25 History [Centrum Silver Men Tablet] Nitroglycerin Sl Tabs [Nitrostat] 0.4 mg SUBLINGUAL Q5M PRN 06/15/25 06/15/25 History metFORMIN HCL [Glucophage] 500 mg PO HS 06/15/25 06/15/25 History metFORMIN HCL [Glucophage] 750 mg PO DAILY 06/15/25 06/16/25 History Allergies Allergy/AdvReac Type Severity Reaction Status Date / Time No Known Allergies Allergy Verified 06/15/25 15:44 Physical Exam Vitals: Vital Signs Temp Pulse Resp BP Pulse Ox 06/16/25 07:00 63 16 122/66 93 L 06/16/25 06:30 66 16 138/60 97 06/16/25 06:00 64 18 128/59 91 L 06/16/25 05:30 63 16 127/53 91 L 06/16/25 05:00 64 16 96/62 95 06/16/25 04:30 63 15 112/59 91 L 06/16/25 04:00 65 15 136/58 94 L 06/16/25 03:30 64 16 128/57 94 L 06/16/25 03:00 67 15 119/54 91 L 06/16/25 02:30 68 16 130/54 92 L 06/16/25 02:00 67 15 122/58 92 L 06/16/25 01:30 66 16 110/54 93 L 06/16/25 01:00 66 15 107/53 94 L 06/16/25 00:30 69 13 143/72 93 L 06/16/25 00:00 97.9 F 71 15 108/61 94 L 06/15/25 23:30 69 18 116/56 93 L 06/15/25 23:00 71 16 118/62 92 L 06/15/25 22:30 78 15 110/68 93 L 06/15/25 22:00 75 18 124/59 93 L 06/15/25 21:30 77 19 120/56 93 L 06/15/25 21:00 73 17 126/58 96 06/15/25 20:30 67 16 138/73 96 06/15/25 20:00 98.6 F 77 18 144/76 95 06/15/25 19:25 86 18 102/70 99 06/15/25 18:21 75 18 112/55 96 06/15/25 16:25 75 18 107/58 96 06/15/25 14:22 97.7 F 84 18 109/63 97 Intake and Output 06/15/25 06/16/25 06/16/25 22:59 06:59 14:59 Intake Total 540 525 75 Output Total 0 0 Balance 540 525 75 Intake: IV 525 75 Sodium Chloride 0.9% 1, 525 75 000 ml @ 75 mls/hr IV . [id number] [facility] Rx#:[id number] Oral 540 Output: Urine 0 0 Other: Voiding Method Toilet Toilet # Voids 0 1 # Bowel Movements 0 0 0 Weight 88.451 kg 86.6 kg General appearance: The patient is alert, oriented, appears in no acute distress. HET: Head is normocephalic and atraumatic. Conjunctiva pink. Sclera anicteric. Neck: Supple without lymphadenopathy. Trachea midline. Heart: Regular. Lungs: Equal expansion, normal respiratory effort. Abdomen: Soft, nontender, nondistended. Skin: No rashes. No jaundice. Extremities: Normal skin color and turgor. No pedal edema. Neurological: No focal deficits. Alert and oriented x3. Results CBC & Chem 7: 06/16/25 12:02 06/16/25 05:44 Labs: Abnormal Lab Results - Last 24 Hours (Table) 06/15/25 06/15/25 06/15/25 Range/Units 15:34 15:34 16:21 WBC (4.50-10.00) 10*3/uL RBC 3.80 L (4.40-5.60) 10*6/uL Hgb 11.9 L (13.0-17.0) g/dL Hct 35.9 L (39.6-50.0) % Immature Gran # (0.00-0.04) 10*3/uL APTT 18.9 L (22.0-30.0) sec BUN 28 H (9-20) mg/dL Glucose 129 H (74-99) mg/dL POC Glucose (mg/dL) (70-110) mg/dL Hemoglobin A1c (<=6.0) % Alkaline Phosphatase <20 L (38-126) U/L Total Protein 6.1 L (6.3-8.2) g/dL Albumin (3.5-5.0) g/dL 06/15/25 06/15/25 06/15/25 Range/Units 16:59 19:53 19:53 WBC 11.19 H (4.50-10.00) 10*3/uL RBC 3.79 L (4.40-5.60) 10*6/uL Hgb 12.1 L (13.0-17.0) g/dL Hct 36.5 L (39.6-50.0) % Immature Gran # 0.08 H (0.00-0.04) 10*3/uL APTT (22.0-30.0) sec BUN 27 H (9-20) mg/dL Glucose 129 H (74-99) mg/dL POC Glucose (mg/dL) 143 H (70-110) mg/dL Hemoglobin A1c (<=6.0) % Alkaline Phosphatase <20 L (38-126) U/L Total Protein 6.0 L (6.3-8.2) g/dL Albumin (3.5-5.0) g/dL 06/15/25 06/16/25 06/16/25 Range/Units 22:01 00:00 05:44 WBC 11.25 H (4.50-10.00) 10*3/uL RBC 3.89 L (4.40-5.60) 10*6/uL Hgb 12.4 L (13.0-17.0) g/dL Hct 37.7 L (39.6-50.0) % Immature Gran # (0.00-0.04) 10*3/uL APTT (22.0-30.0) sec BUN (9-20) mg/dL Glucose (74-99) mg/dL POC Glucose (mg/dL) 125 H (70-110) mg/dL Hemoglobin A1c 6.9 H (<=6.0) % Alkaline Phosphatase (38-126) U/L Total Protein (6.3-8.2) g/dL Albumin (3.5-5.0) g/dL 07/29/25 07/29/25 Range/Units 05:44 05:44 WBC (4.50-10.00) 10*3/uL RBC 3.55 L (4.40-5.60) 10*6/uL Hgb 11.2 L (13.0-17.0) g/dL Hct 34.0 L (39.6-50.0) % Immature Gran # 0.07 H (0.00-0.04) 10*3/uL APTT (22.0-30.0) sec BUN 25 H (9-20) mg/dL Glucose 125 H (74-99) mg/dL POC Glucose (mg/dL) (70-110) mg/dL Hemoglobin A1c (<=6.0) % Alkaline Phosphatase <20 L (38-126) U/L Total Protein 5.4 L (6.3-8.2) g/dL Albumin 3.3 L (3.5-5.0) g/dL Assessment and Plan (1) Hematochezia Narrative/Plan: 84-year-old male with painless bright red blood per rectum with reported history of lower GI bleed which she states was secondary to colon polyp which was cauterized. Need to consider possible diverticular bleed as etiology as well. Will continue to monitor and treat symptomatically currently. Consider possible colonoscopy if bleeding continues. Current Visit: Yes Status: Acute Code(s): K92.1 - MELENA SNOMED Code(s): 075123542 (2) Coronary artery disease Narrative/Plan: On aspirin and Plavix Current Visit: Yes Status: Acute Code(s): I25.10 - ATHSCL HEART DISEASE OF [place] CORONARY ARTERY W/O ANG PCTRS SNOMED Code(s): 99113950 Plan: 1. Continue symptomatic and supportive care 2. Patient may have clear liquid diet, n.p.o. after midnight 3. Daily CBC, transfuse for hemoglobin less than 7 4. Protonix 40 mg daily for GI prophylaxis 5. Hold Plavix, may give aspirin if needed per cardiology recommendations 6. Bed in the morning, start at 5 AM 7. Will plan for colonoscopy tomorrow afternoon 8. Rest of medical management per primary medical team Thank you for this consultation, we will continue to follow. Dr. Etta Foley I agree with the dictator's note, documented as a scribe by Jasmyn Colunga
[2025-06-16 11:37] LABS: Glucose,Whole Blood 162 mg/dL (70-110)
--- NOTE | 2025-06-16 11:38 | P.CRDCN ---
History of Present Illness Consult date: 06/16/25 Requesting physician: Damaris Castellanos Reason for Consult (text): cad stent History of present illness: HISTORY OF PRESENT ILLNESS: Patient is an 84-year-old male with past medical history of diabetes mellitus, hyperlipidemia, hypertension, LUIS CARLOS, CAD S/p prior RCA stenting, left subclavian stenosis s/p stenting in December 2024, GI bleed presented to the ED with GI bleed. Patient reported that he woke up with an urge to defecate. He noticed large amount of bright red blood in the toilet. Patient denies any abdominal pain. He reports using aspirin as well as Plavix at home. He does report a history of GI bleed due to polyps that required cauterization and his last colonoscopy was 5 years ago. Patient seen today under cardiology consultation. He states that his rectal bleeding has stopped and denies any abdominal pain, chest pain, palpitations. Patient denies fever, chills, dizziness, chest pain, dyspnea, significant abdominal pain, N/V, melena, urinary symptoms. Vitals: Temperature 98 F, VT 60 bpm, RR 15, BP 133/59, SpO2 94% on room air Labs hemoglobin 11.2, creatinine 0.96, WBC 7.93, A1c 6.9 REVIEW OF SYSTEMS: Pertinent positives and negatives as discussed in HPI, a complete review of systems was performed and all other systems are negative. PHYSICAL EXAM: GENERAL: nontoxic, no distress, appears at stated age LUNGS: clear to auscultation bilaterally HEART: Regular rate and rhythm. S1 and S2 heard ABDOMEN: Soft. Nondistended. Nontender. EXTREMITIES: No clubbing or cyanosis. Peripheral pulses intact NEUROLOGIC: Awake and alert. Oriented x 3. ASSESSMENT: GI bleed History of GI polyps CAD S/p prior RCA stenting Left subclavian stenosis S/p stenting in December 2024 Diabetes Hypertension Hyperlipidemia PLAN: Hold home meds Aspirin and Plavix Obtain echocardiogram to assess cardiac structure and function Patient is on clear liquid diet Monitor CBC Dictation was produced using [employer] dictation software. please excuse any grammatical, word or spelling errors. Sailaja Braga MD PGY-2 IM I saw and evaluated the patient during the faye and critical portions of this en counter, and discussed the case in detail with the resident author of this note, I agree with the Assessment and Plan. Past Medical History Past Medical History: Diabetes Mellitus, GI Bleed, Hyperlipidemia, Hypertension, Prostate Disorder, Sleep Apnea/CPAP/BIPAP Additional Past Medical History / Comment(s): seasonal allergies, hx rectal bleed with diverticulosis, neuropathy julius feet,no cpap used, NIDDM History of Any Multi-Drug Resistant Organisms: None Reported Past Surgical History: Heart Catheterization With Stent, Joint Replacement, Orthopedic Surgery Additional Past Surgical History / Comment(s): Heart cath with carotid stent 01/16/25 (Dr. Byers), repair torn rotator cuff julius., prostate surgery(turp), colonoscopy with cauterization , julius hip replaced, B/L cateracts removed Past Anesthesia/Blood Transfusion Reactions: No Reported Reaction Date of Last Stent Placement:: 2024 Past Psychological History: No Psychological Hx Reported Smoking Status: Former smoker Past Alcohol Use History: Occasional Additional Past Alcohol Use History / Comment(s): smoked since age 13 1ppd quit age 69 Past Drug Use History: None Reported - Past Family History Mother Family Medical History: No Reported History Medications and Allergies Home Medications Medication Instructions Recorded Confirmed Type Albuterol Sulfate [Proair Hfa] 2 puff INHALATION RT-QID PRN 02/25/18 06/15/25 History Aspirin [Adult Low Dose Aspirin EC] 81 mg PO DAILY 02/25/18 06/15/25 History Cyanocobalamin [Vitamin B-12] 5,000 mcg PO DAILY 02/25/18 06/15/25 History Fenofibrate 54 mg PO DAILY 02/25/18 06/15/25 History Ipratropium Sandy 0.06%Nasal 2 spray EA NOSTRIL DAILY 02/25/18 06/15/25 History [Atrovent Nasal 0.06%] Meloxicam 15 mg PO DAILY PRN 02/25/18 06/15/25 History Metoprolol Tartrate 25 mg PO BID 02/25/18 06/15/25 History Montelukast [Singulair] 10 mg PO HS 02/25/18 06/15/25 History Simvastatin 40 mg PO DAILY 02/25/18 06/15/25 History Fluticasone/Umeclidin/Vilanter 1 puff INHALATION RT-DAILY 01/02/25 06/15/25 History [Trelegy Ellipta 100-62.5-25] Cetirizine HCl [Zyrtec] 10 mg PO DAILY PRN 06/15/25 06/15/25 History Clopidogrel [Plavix] 75 mg PO DAILY 06/15/25 06/15/25 History Levothyroxine Sodium [Synthroid] 50 mcg PO DAILY 06/15/25 06/15/25 History Mv-Min/Folic/K1/Lycopen/Lutein 1 tab PO DAILY 06/15/25 06/15/25 History [Centrum Silver Men Tablet] Nitroglycerin Sl Tabs [Nitrostat] 0.4 mg SUBLINGUAL Q5M PRN 06/15/25 06/15/25 History metFORMIN HCL [Glucophage] 500 mg PO HS 06/15/25 06/15/25 History metFORMIN HCL [Glucophage] 750 mg PO BID 06/15/25 06/15/25 History Allergies Allergy/AdvReac Type Severity Reaction Status Date / Time No Known Allergies Allergy Verified 06/15/25 15:44 Physical Exam Vitals: Vital Signs Temp Pulse Resp BP Pulse Ox 06/16/25 10:00 62 15 133/59 06/16/25 09:30 61 17 133/59 94 L 06/16/25 09:00 64 17 126/57 95 06/16/25 08:30 64 18 124/57 06/16/25 08:00 98.0 F 65 17 116/72 95 06/16/25 07:30 65 17 119/58 91 L 06/16/25 07:00 63 16 122/66 93 L 06/16/25 06:30 66 16 138/60 97 06/16/25 06:00 64 18 128/59 91 L 06/16/25 05:30 63 16 127/53 91 L 06/16/25 05:00 64 16 96/62 95 06/16/25 04:30 63 15 112/59 91 L 06/16/25 04:00 65 15 136/58 94 L 06/16/25 03:30 64 16 128/57 94 L 06/16/25 03:00 67 15 119/54 91 L 06/16/25 02:30 68 16 130/54 92 L 06/16/25 02:00 67 15 122/58 92 L 06/16/25 01:30 66 16 110/54 93 L 06/16/25 01:00 66 15 107/53 94 L 06/16/25 00:30 69 13 143/72 93 L 06/16/25 00:00 97.9 F 71 15 108/61 94 L 06/15/25 23:30 69 18 116/56 93 L 06/15/25 23:00 71 16 118/62 92 L 06/15/25 22:30 78 15 110/68 93 L 06/15/25 22:00 75 18 124/59 93 L 06/15/25 21:30 77 19 120/56 93 L 06/15/25 21:00 73 17 126/58 96 06/15/25 20:30 67 16 138/73 96 06/15/25 20:00 98.6 F 77 18 144/76 95 06/15/25 19:25 86 18 102/70 99 06/15/25 18:21 75 18 112/55 96 06/15/25 16:25 75 18 107/58 96 06/15/25 14:22 97.7 F 84 18 109/63 97 Intake and Output 06/15/25 06/16/25 06/16/25 22:59 06:59 14:59 Intake Total 540 525 300 Output Total 0 0 Balance 540 525 300 Intake: IV 525 300 Sodium Chloride 0.9% 1, 525 300 000 ml @ 75 mls/hr IV . [id number] [facility] Rx#:[id number] Oral 540 Output: Urine 0 0 Other: Voiding Method Toilet Toilet Toilet # Voids 0 0 # Bowel Movements 0 0 0 Weight 88.451 kg 86.6 kg Results 06/16/25 05:44 06/16/25 05:44 Cardiac Enzymes 06/15/25 06/15/25 06/16/25 Range/Units 15:34 19:53 05:44 AST 21 21 19 (17-59) U/L Coagulation 06/15/25 Range/Units 16:21 PT 11.2 (10.0-12.5) sec APTT 18.9 L (22.0-30.0) sec CBC 06/15/25 06/15/25 06/16/25 Range/Units 15:34 19:53 00:00 WBC 9.29 11.19 H 11.25 H (4.50-10.00) 10*3/uL RBC 3.80 L 3.79 L 3.89 L (4.40-5.60) 10*6/uL Hgb 11.9 L 12.1 L 12.4 L (13.0-17.0) g/dL Hct 35.9 L 36.5 L 37.7 L (39.6-50.0) % Plt Count 238 243 258 (140-440) 10*3/uL 06/16/25 Range/Units 05:44 WBC 7.93 (4.50-10.00) 10*3/uL RBC 3.55 L (4.40-5.60) 10*6/uL Hgb 11.2 L (13.0-17.0) g/dL Hct 34.0 L (39.6-50.0) % Plt Count 221 (140-440) 10*3/uL Comprehensive Metabolic Panel 06/15/25 06/15/25 06/16/25 Range/Units 15:34 19:53 05:44 Sodium 139 138 137 (137-145) mmol/L Potassium 4.9 4.6 4.0 (3.5-5.1) mmol/L Chloride 106 106 106 (98-107) mmol/L Carbon Dioxide 24 22 24 (22-30) mmol/L BUN 28 H 27 H 25 H (9-20) mg/dL Creatinine 1.02 1.00 0.96 (0.66-1.25) mg/dL Glucose 129 H 129 H 125 H (74-99) mg/dL Calcium 9.2 8.8 8.5 (8.4-10.2) mg/dL AST 21 21 19 (17-59) U/L ALT 18 18 16 (4-49) U/L Alkaline Phosphatase <20 L <20 L <20 L (38-126) U/L Total Protein 6.1 L 6.0 L 5.4 L (6.3-8.2) g/dL Albumin 3.8 3.7 3.3 L (3.5-5.0) g/dL Current Medications Generic Name Dose Route Start Last Admin Trade Name Freq PRN Reason Stop Dose Admin Hydrocodone Bitart/Acetaminophen 1 each 06/15/25 16:39 Hydrocodone/Apap 5-325mg 1 Each Tab PO Q6HR PRN Pain Albuterol Sulfate 2.5 mg 06/15/25 16:38 Albuterol Nebulized 2.5 Mg/3 Ml INHALATION RT-QID PRN Shortness Of Breath Atorvastatin Calcium 20 mg 06/16/25 09:00 06/16/25 08:35 Atorvastatin 20 Mg Tab PO 20 mg DAILY MISSY Administration Budesonide/Formoterol Fumarate 2 puff 06/16/25 08:00 Symbicort 160-4.5 Mcg Inhaler INHALATION RT-BID MISSY Cyanocobalamin 2,500 mcg 06/16/25 09:00 06/16/25 08:34 Cyanocobalamin 500 Mcg Tab PO 2,500 mcg DAILY MISSY Administration Dextrose/Water 25 ml 06/15/25 16:39 Dextrose 50% Syringe 50 Ml IVP PER PROTOCOL PRN Hypoglycemia Protocol Dextrose/Water 50 ml 06/15/25 16:39 Dextrose 50% Syringe 50 Ml IVP PER PROTOCOL PRN Hypoglycemia Protocol Fenofibrate 54 mg 06/16/25 09:00 06/16/25 10:10 Fenofibrate 54 Mg Tab PO 54 mg DAILY MISSY Administration Sodium Chloride 1,000 mls @ 75 mls/hr 06/15/25 16:30 06/16/25 06:30 Saline 0.9% IV 75 mls/hr .[id number] MISSY Administration Insulin Human Lispro 0 unit 06/15/25 17:30 06/16/25 07:26 Insulin Lispro (Humalog) 100 Unit/Ml 10 Ml Vl SQ Not Given ACHS [facility] Protocol Ipratropium Sandy 2 spray 06/16/25 09:00 06/16/25 10:10 Ipratropium Sandy 0.06% Nasal [place] (15 Ml) EA NOSTRIL Not Given DAILY MISSY Levothyroxine Sodium 50 mcg 06/16/25 06:30 06/16/25 06:28 Levothyroxine 50 Mcg Tab PO 50 mcg DAILY@0630 MISSY Administration Loratadine 10 mg 06/15/25 16:38 Loratadine 10 Mg Tab PO DAILY PRN Allergy Symptoms Metoprolol Tartrate 25 mg 06/15/25 21:00 06/16/25 08:34 Metoprolol Tartrate 25 Mg Tab PO 25 mg BID MISSY Administration Montelukast Sodium 10 mg 06/15/25 21:00 06/15/25 22:07 Montelukast 10 Mg Tab PO 10 mg HS MISSY Administration Naloxone HCl 0.2 mg 06/15/25 17:52 Naloxone 0.4 Mg/Ml 1 Ml Vial IV Q2M PRN Opioid Reversal Nitroglycerin 0.4 mg 06/15/25 16:38 Nitroglycerin Sl Tabs 0.4 Mg Tab SUBLINGUAL Q5M PRN Chest Pain Pantoprazole Sodium 40 mg 06/15/25 16:45 06/16/25 08:34 Pantoprazole 40 Mg/10 Ml Vial IVP 40 mg DAILY MISSY Administration Tiotropium Sandy 2 puff 06/16/25 08:00 Tiotropium 2.5 Mcg Inhaler INHALATION RT-DAILY MISSY Intake and Output 06/15/25 06/16/25 06/16/25 22:59 06:59 14:59 Intake Total 540 525 300 Output Total 0 0 Balance 540 525 300 Intake: IV 525 300 Sodium Chloride 0.9% 1, 525 300 000 ml @ 75 mls/hr IV . [id number] [facility] Rx#:[id number] Oral 540 Output: Urine 0 0 Other: Voiding Method Toilet Toilet Toilet # Voids 0 0 # Bowel Movements 0 0 0 Weight 88.451 kg 86.6 kg 06/16/25 05:44 06/16/25 05:44
[2025-06-16] MEDS: TIOTROPIUM 2.5 MCG INHALER INHALATION SCH (12:17)
[2025-06-16] MEDS: SYMBICORT 160-4.5 MCG INHALER INHALATION SCH (12:17)
[2025-06-16 12:19] LABS: HCT 36.5 % (39.6-50.0); HGB 11.8 g/dL (13.0-17.0); MCH 31.2 pg (27.0-32.0); MCHC 32.3 g/dL (32.0-37.0); MCV 96.6 fL (80.0-97.0); Platelet Count 246 10*3/uL (140-440); RBC 3.78 10*6/uL (4.40-5.60); RDW 13.5 % (11.5-14.5); WBC 8.24 10*3/uL (4.50-10.00)
--- NOTE | 2025-06-16 12:49 | HP ---
HISTORY AND PHYSICAL CHIEF COMPLAINT: GI bleed. HISTORY OF PRESENT ILLNESS: This 84-year-old gentleman with a past medical history of multiple medical problems including diabetes mellitus, hypertension, was noted to have GI bleed this morning. The patient went to [facility] and the patient was subsequently referred to [facility] for further evaluation and treatment. The hemoglobin 11.9 at this time. Stool OB is positive. The patient apparently had angiomatous malformations previously, which was cauterized. The details are not available at this time. PAST MEDICAL HISTORY: GI bleed, hypertension, hyperlipidemia. Rest of history and the chart is also reviewed. HOME MEDICATIONS: Reviewed, nitroglycerin. Doses and rest of medications reviewed. ALLERGIES: None. FAMILY HISTORY: No history of heart disease or strokes in the family. SOCIAL HISTORY: Previous history of smoking. REVIEW OF SYSTEMS: A 14-point review of systems is negative except as mentioned earlier. PHYSICAL EXAMINATION: VITAL SIGNS: Pulse 75, blood pressure 107/58, and respirations 18. HEENT: Conjunctivae normal. NECK: No JVD. CARDIOVASCULAR: S1, S2. ABDOMEN: Soft, obese, nontender. LEGS: No edema. No cyanosis. NERVOUS SYSTEM: No focal deficits. SKIN: No rash. JOINTS: No active deforming arthropathy. LABORATORY DATA: Noted. ASSESSMENT: 1. Acute lower GI bleed with acute blood loss anemia. 2. History of angiomatous malformations. 3. History of CAD, stenting. 4. Diabetes mellitus, type 2. 5. Hypertension. 6. Hyperlipidemia. 7. History of sleep apnea. RECOMMENDATIONS: This 84-year-old gentleman, presented with multiple complex medical issues. We will monitor the patient closely. Continue the current management and symptomatic treatment otherwise. Gastroenterology consultation. The patient is on aspirin at this time. I recommend to hold off anticoagulants at this time. Prognosis guarded. Further recommendations, see orders for details. MMODL / IJN: [id number] / MTDD
[2025-06-16 16:27] LABS: Glucose,Whole Blood 144 mg/dL (70-110)
--- NOTE | 2025-06-16 18:08 | XR ---
EXAMINATION TYPE: XR chest 1V portable DATE OF EXAM: 06/16/2025 5:56 PM COMPARISON: None CLINICAL INDICATION: Male, 84 years old with history of chf; TECHNIQUE: XR chest 1V portable Frontal view of the chest. FINDINGS: Lungs/Pleura: There is no evidence of pleural effusion, focal consolidation, or pneumothorax. Pulmonary vascularity: Unremarkable. Heart/mediastinum: Cardiomediastinal silhouette is unremarkable. Musculoskeletal: No acute osseous pathology. IMPRESSION: No acute cardiopulmonary disease/process. [facility], , 06/16/2025 6:05 PM
[2025-06-16 20:12] LABS: Glucose,Whole Blood 118 mg/dL (70-110)
--- NOTE | 2025-06-16 20:14 | PN ---
PROGRESS NOTE DATE OF SERVICE: 06/16/2025 SUBJECTIVE: This 84-year-old gentleman with a past medical history of medical problems, admitted with GI bleed, multiple consultants are following the patient closely. The hemoglobin was found to be 11.8. Glucose are noted. PAST MEDICAL HISTORY: Reviewed. REVIEW OF SYSTEMS: A 14-point review of systems negative except as mentioned earlier. CURRENT MEDICATIONS: Reviewed. PHYSICAL EXAMINATION: VITAL SIGNS: Pulse is 55, blood pressure 111/51, respirations 20. HEENT: Conjunctivae pale. NECK: No JVD. CARDIOVASCULAR: S1, S2. No murmur. RESPIRATIONS: Breath sounds diminished at the bases. ABDOMEN: Soft, nontender. NERVOUS SYSTEM: Nonfocal. LABORATORY DATA: Reviewed. ASSESSMENT: 1. Acute lower gastrointestinal bleed with acute blood loss anemia. 2. History of angiomatous malformation. 3. History of coronary artery disease stenting. 4. Diabetes mellitus, type 2. 5. Hypertension. 6. Hyperlipidemia. 7. History of sleep apnea. RECOMMENDATIONS AND DISCUSSION: Recommend to continue current management and symptomatic treatment. Repeat labs otherwise monitor for hemoglobin. Closely follow with Gastroenterology. Guarded prognosis. Further recommendations to follow. MMODL / IJN: [id number] /
[2025-06-17] MEDS: PEG 3350 (236 GM/BTL) + LYTES 4,000 ML BOTTLE PO ONE ×2 (05:30→05:31)
[2025-06-17 06:27] LABS: Glucose,Whole Blood 124 mg/dL (70-110)
[2025-06-17 07:04] LABS: Basophils # (A) 0.03 10*3/uL (0.00-0.10); Basophils % (A) 0.4 %; Eosinophils # (A) 0.20 10*3/uL (0.04-0.35); Eosinophils % (A) 2.8 %; HCT 33.8 % (39.6-50.0); HGB 11.3 g/dL (13.0-17.0); Lymphocytes # (A) 2.11 10*3/uL (0.90-5.00); Lymphocytes % (A) 29.1 %; MCH 32.0 pg (27.0-32.0); MCHC 33.4 g/dL (32.0-37.0); MCV 95.8 fL (80.0-97.0); Monocytes # (A) 0.68 10*3/uL (0.20-1.00); Monocytes % (A) 9.4 %; Neutrophils # (A) 4.18 10*3/uL (1.80-7.70); Neutrophils % (A) 57.7 %; Platelet Count 232 10*3/uL (140-440); RBC 3.53 10*6/uL (4.40-5.60); RDW 13.5 % (11.5-14.5); WBC 7.24 10*3/uL (4.50-10.00)
[2025-06-17 07:23] LABS: African American GFR (CKD) 85 (>60 ml/min/1.73 sqM); Anion Gap 7 mmol/L; Blood Urea Nitrogen 15 mg/dL (9-20); Calcium 8.6 mg/dL (8.4-10.2); Carbon Dioxide 26 mmol/L (22-30); Chloride 105 mmol/L (98-107); Glucose 122 mg/dL (74-99); Non-African American GFR(CKD) 74 (>60 ml/min/1.73 sqM); Potassium 4.1 mmol/L (3.5-5.1); Sodium 138 mmol/L (137-145)
--- NOTE | 2025-06-17 10:18 | P.PN ---
Subjective Progress Note Date: 06/17/25 Principal diagnosis: HISTORY OF PRESENT ILLNESS: Patient is an 84-year-old male with past medical history of diabetes mellitus, hyperlipidemia, hypertension, LUIS CARLOS, CAD S/p prior RCA stenting, left subclavian stenosis s/p stenting in December 2024, GI bleed presented to the ED with GI bleed. Patient reported that he woke up with an urge to defecate. He noticed large amount of bright red blood in the toilet. Patient denies any abdominal pain. He reports using aspirin as well as Plavix at home. He does report a history of GI bleed due to polyps that required cauterization and his last colonoscopy was 5 years ago. Patient seen today under cardiology consultation. He states that his rectal bleeding has stopped and denies any abdominal pain, chest pain, palpitations. Harris vern denies fever, chills, dizziness, chest pain, dyspnea, significant abdominal pain, N/V, melena, urinary symptoms. Vitals: Temperature 98 F, MT 60 bpm, RR 15, BP 133/59, SpO2 94% on room air Labs hemoglobin 11.2, creatinine 0.96, WBC 7.93, A1c 6.9 PROGRESS NOTE: 06/17/25: Patient seen and examined at bedside today. He denies any new complaints. Vital signs within normal limits Hemoglobin 11.3, Creatinine 0.95 Patient scheduled for colonoscopy for later today. REVIEW OF SYSTEMS: Pertinent positives and negatives as discussed in HPI, a complete review of systems was performed and all other systems are negative. PHYSICAL EXAM: GENERAL: nontoxic, no distress, appears at stated age LUNGS: clear to auscultation bilaterally HEART: Regular rate and rhythm. S1 and S2 heard ABDOMEN: Soft. Nondistended. Nontender. EXTREMITIES: No clubbing or cyanosis. Peripheral pulses intact NEUROLOGIC: Awake and alert. Oriented x 3. ASSESSMENT: GI bleed History of GI polyps CAD S/p prior RCA stenting Left subclavian stenosis S/p stenting in December 2024 Diabetes Hypertension Hyperlipidemia PLAN: Hold home meds Aspirin and Plavix Obtain echocardiogram to assess cardiac structure and function Monitor CBC Dictation was produced using [employer] dictation software. please excuse any grammatical, word or spelling errors. Sailaja Braga MD PGY-2 IM I saw and evaluated the patient during the faye and critical portions of this encounter, and discussed the case in detail with the resident author of this note, I agree with the Assessment and Plan. Objective - Vital Signs Vital signs: Vital Signs Temp 98.2 F 06/17/25 08:00 Pulse 61 06/17/25 08:00 Resp 16 06/17/25 08:00 BP 114/68 06/17/25 08:00 Pulse Ox 95 06/17/25 08:00 FiO2 Intake & Output 06/16/25 06/17/25 06/17/25 18:59 06:59 18:59 Intake Total 1860 Balance 1860 Weight 86.9 kg Intake: IV 900 Sodium Chloride 0.9% 1, 900 000 ml @ 75 mls/hr IV . [id number] [facility] Rx#:[id number] Oral 960 Other: Voiding Method Toilet Toilet # Voids 4 3 # Bowel Movements 0 1 - Labs CBC & Chem 7: 06/17/25 06:10 06/17/25 06:10 Labs: Abnormal Lab Results - Last 24 Hours (Table) 06/16/25 06/16/25 06/16/25 Range/Units 11:36 12:02 16:26 RBC 3.78 L (4.40-5.60) 10*6/uL Hgb 11.8 L (13.0-17.0) g/dL Hct 36.5 L (39.6-50.0) % Glucose (74-99) mg/dL POC Glucose (mg/dL) 162 H 144 H (70-110) mg/dL 06/16/25 06/17/25 06/17/25 Range/Units 20:11 06:10 06:10 RBC 3.53 L (4.40-5.60) 10*6/uL Hgb 11.3 L (13.0-17.0) g/dL Hct 33.8 L (39.6-50.0) % Glucose 122 H (74-99) mg/dL POC Glucose (mg/dL) 118 H (70-110) mg/dL 06/17/25 Range/Units 06:25 RBC (4.40-5.60) 10*6/uL Hgb (13.0-17.0) g/dL Hct (39.6-50.0) % Glucose (74-99) mg/dL POC Glucose (mg/dL) 124 H (70-110) mg/dL
[2025-06-17 11:28] LABS: Glucose,Whole Blood 138 mg/dL (70-110)
--- NOTE | 2025-06-17 11:40 | P.PN ---
Subjective Progress Note Date: 06/17/25 Principal diagnosis: Gastrointestinal bleed. Patient is an 84-year-old male with past medical history significant for GI bleed, diverticulosis, colon polyps, CAD with previous stent to the RCA, left subclavian artery stenosis with previous stent, carotid artery stenosis. He also sees Dr. Varela in the pulmonary office for severe COPD. He has an FEV1 48% of predicted. Maintained on DuoNebs [id number] as well as Trelegy inhaler. Transferred from [facility] yesterday after for rectal bleeding. Having multiple large bright red bowel movements. He does take aspirin and Plavix at home. Denies any other anticoagulants or NSAIDs. Denies any nausea, vomiting, hematemesis. Denies any abdominal pain. Blood pressures remain stable. Nontachycardic. He has had an additional 2 bright red bowel movements while at our facility. Has not required any blood product transfusions. Hemoglobin stable at 12.4 g/dL. Most recent labs including a CBC with a WBC count of 11.25, hemoglobin 12.4, platelets 258. CMP: Sodium 138, potassium 4.6, chloride 106, serum bicarb 22, BUN 27, creatinine 1, glucose 129. LFTs unremarkable. Normal saline infusing at 75 mm/h. Patient currently being evaluated in the intensive care unit. Resting comfortably on room air. Asymptomatic. Nontachycardic. Blood pressure 119/54 mmHg. Progress note dated June 17, 2025. 84-year-old male seen today in room 261. The patient is on room air. He is not receiving any IV fluids. The patient is alert and awake. He sitting in a chair next to the hospital bed. He is scheduled to have an EGD and colonoscopy today. The patient did have another bowel movement with dark blood in it. Nothing bright. His hemoglobin has been stable. White count of 7.24, hemoglobin 9.3, hematocrit 33.8, platelet count normal. Sodium, potassium, chloride, CO2, anion gap, BUN, creatinine are all normal. Glucose is 138. Calcium is 8.6. Objective - Vital Signs Vital signs: Vital Signs Temp 98.2 F 06/17/25 08:00 Pulse 61 06/17/25 08:00 Resp 16 06/17/25 08:00 BP 114/68 06/17/25 08:00 Pulse Ox 95 06/17/25 08:00 FiO2 Intake & Output 06/16/25 06/17/25 06/17/25 18:59 06:59 18:59 Intake Total 1860 Balance 1860 Weight 86.9 kg Intake: IV 900 Sodium Chloride 0.9% 1, 900 000 ml @ 75 mls/hr IV . [id number] [facility] Rx#:[id number] Oral 960 Other: Voiding Method Toilet Toilet Toilet # Voids 4 3 # Bowel Movements 0 1 2 - Exam No acute distress, oriented 3. Not currently on any air at this time. HEENT examination is grossly unremarkable. Mucous membranes are moist. No oral lesions. Neck supple. Full range of motion. No adenopathy thyromegaly or neck vein distention. Cardiovascular examination reveals regular rhythm rate. S1-S2 normal. No S3 or S4. No discernible murmur noted. Lungs reveal clear breath sounds. Breath sounds are equal bilaterally. No adventitious lung sounds including wheezes rhonchi or crackles. Abdomen soft bowel sounds are heard. No masses or tenderness. Extremities are intact. No cyanosis clubbing or edema. Skin is without rash or lesion. Neurologic examination is brief but nonfocal. - Labs CBC & Chem 7: 06/17/25 06:10 06/17/25 06:10 Labs: Abnormal Lab Results - Last 24 Hours (Table) 06/16/25 06/16/25 06/16/25 Range/Units 11:36 12:02 16:26 RBC 3.78 L (4.40-5.60) 10*6/uL Hgb 11.8 L (13.0-17.0) g/dL Hct 36.5 L (39.6-50.0) % Glucose (74-99) mg/dL POC Glucose (mg/dL) 162 H 144 H (70-110) mg/dL 06/16/25 06/17/25 06/17/25 Range/Units 20:11 06:10 06:10 RBC 3.53 L (4.40-5.60) 10*6/uL Hgb 11.3 L (13.0-17.0) g/dL Hct 33.8 L (39.6-50.0) % Glucose 122 H (74-99) mg/dL POC Glucose (mg/dL) 118 H (70-110) mg/dL 06/17/25 06/17/25 Range/Units 06:25 11:27 RBC (4.40-5.60) 10*6/uL Hgb (13.0-17.0) g/dL Hct (39.6-50.0) % Glucose (74-99) mg/dL POC Glucose (mg/dL) 124 H 138 H (70-110) mg/dL Assessment and Plan Assessment: Acute lower GI bleed. History of diverticulosis. History of colon polyps. History of CAD with previous stent of RCA. History of left subclavian artery stenosis with previous stent. History of carotid artery stenosis. Hypertension. History of hyperlipidemia. Diabetes mellitus type 2. Severe chronic obstructive pulmonary disease, with an FEV1 48% of predicted, not in exacerbation. Plan: Plan dated June 17, 2025. The patient is seen today in room 261. He is resting comfortably at the bedside. He is on room air. The patient is not receiving any IV fluids. The patient's hemoglobin is stable. He did have a bowel movement this morning with some dark blood in it. Nothing bright. The patient is scheduled for an EGD and colonoscopy today. Labs, x-rays, and medications are reviewed. We will continue to follow and make recommendations along the way. Prognosis is thought to be generally good. Dictation was produced using [employer] software. Please excuse any grammatical, word or spelling errors. Time with Patient: Less than 30
--- NOTE | 2025-06-17 12:30 | CA ---
Transthoracic Echo Report Name: Tripp Winston Age: 84 Gender: M : 1940 Exam Date: 06/16/2025 14:26 Exam Location: [facility] Ht (in): 66 Wt (lb): 190 Ordering Physician: Sailaja Braga MD Attending/Referring Phys: Resident Care Coordinator Lesvia Perea RDCS Procedure CPT: Indications: history of cad and rca stent Cardiac Hx: Technical Quality: Poor Contrast 1: Total Dose (mL): Contrast 2: Total Dose (mL): MEASUREMENTS (Male / Female) Normal Values 2D ECHO LV Diastolic Diameter PLAX 4.3 cm 4.2 - 5.9 / 3.9 - 5.3 cm LV Systolic Diameter PLAX 3.3 cm IVS Diastolic Thickness 1.3 cm 0.6 - 1.0 / 0.6 - 0.9 cm LVPW Diastolic Thickness 1.2 cm 0.6 - 1.0 / 0.6 - 0.9 cm LV Relative Wall Thickness 0.6 RV Internal Dim ED PLAX 3.3 cm LVOT Diameter 1.8 cm LA Systolic Diameter LX 2.9 cm 3.0 - 4.0 / 2.7 - 3.8 cm LV Diastolic Volume MOD BP 77.5 cm??? 67 - 155 / 56 - 104 cm??? LV Systolic Volume MOD BP 25.1 cm??? 22 - 58 / 19 - 49 cm??? LV Ejection Fraction MOD BP 67.6 % >= 55 % LV Cardiac Index MOD BP 1599.5 cm???/min???m??? LV Diastolic Volume MOD 4C 73.6 cm??? LV Systolic Volume MOD 4C 21.8 cm??? LV Ejection Fraction MOD 4C 70.3 % LV Cardiac Index MOD 4C 1581.3 cm???/min???m??? LV Diastolic Length 4C 7.7 cm LV Systolic Length 4C 6.1 cm LV Diastolic Volume MOD 2C 75.0 cm??? LV Systolic Volume MOD 2C 28.3 cm??? LV Ejection Fraction MOD 2C 62.3 % LV Cardiac Index MOD 2C 1425.1 cm???/min???m??? LV Diastolic Length 2C 7.0 cm LV Systolic Length 2C 6.1 cm Ascending Aorta Diameter 4.0 cm M-MODE Aortic Root Diameter MM 3.4 cm AV Cusp Separation MM 1.8 cm DOPPLER AV Peak Velocity 83.4 cm/s AV Peak Gradient 2.8 mmHg LVOT Peak Velocity 79.3 cm/s LVOT Peak Gradient 2.5 mmHg AV Area Cont Eq pk 2.4 cm??? Mitral E Point Velocity 68.6 cm/s Mitral A Point Velocity 88.7 cm/s Mitral E to A Ratio 0.8 MV Deceleration Time 311.1 ms MV E' Velocity 6.1 cm/s Mitral E to MV E' Ratio 11.2 TR Peak Velocity 8.3 cm/s TR Peak Gradient 0.0 mmHg PV Peak Velocity 74.0 cm/s PV Peak Gradient 2.2 mmHg FINDINGS Left Ventricle Left ventricular ejection fraction is estimated at 55-60 %. Normal left ventricular systolic function with no obvious regional wall motion abnormalities.Mildly increased left ventricular wall thickness. Right Ventricle Right ventricle not well visualized. Right Atrium Normal right atrial size. No right atrial thrombus or mass seen. Left Atrium Normal left atrial size. No left atrial thrombus or mass present. Mitral Valve Mitral valve thickened. No mitral stenosis. Mild mitral regurgitation.mitral annular calcification. Aortic Valve No aortic stenosis. No aortic regurgitation.aortic valve sclerosis. Tricuspid Valve Structurally normal tricuspid valve. No tricuspid regurgitation. Pulmonic Valve Pulmonic valve not well visualized. No pulmonic regurgitation. Pericardium No pericardial effusion. No pleural effusion. Aorta Normal size aortic root , Dilated proximal ascending aorta 4.0cm CONCLUSIONS Technically difficult study. Normal left ventricular size and systolic function Very limited Doppler study with mild mitral regurgitation Previewed by: Dr. Dave Lara MD (Electronically Signed) Final Date: 17 June 2025 12:29
[2025-06-17] MEDS: LACTATED RINGERS 1,000 ML IV ONE (16:15)
[2025-06-17] MEDS ORDERED: PROPOFOL 10 MG/ML 20 ML VIAL IV ONE (16:18)
[2025-06-17] MEDS ORDERED: LIDOCAINE 1% INJ 10MG/ML (20 ML MDV) ONE (16:18)
--- NOTE | 2025-06-17 16:26 | PN ---
PROGRESS NOTE DATE OF SERVICE: 06/17/2025 SUBJECTIVE: This 84-year-old gentleman who was admitted with acute lower GI bleed and acute blood loss anemia, is being closely monitored at this time. Hemoglobin is 11.3 today. The patient is being monitored in ICU. Gastroenterology is following the patient closely for possible endoscopies. PAST MEDICAL HISTORY: Reviewed. REVIEW OF SYSTEMS: A 14-point review of systems negative except as mentioned earlier. CURRENT MEDICATIONS: Reviewed. PHYSICAL EXAMINATION: VITAL SIGNS: Pulse is 61, blood pressure 114/68, respirations 16. HEENT: Conjunctivae normal. NECK: No JVD. CARDIOVASCULAR: S1, S2. RESPIRATIONS: Breath sounds diminished at the bases. ABDOMEN: Soft and obese. LEGS: No swelling. LABORATORY DATA: Reviewed. Hemoglobin 11.3. ASSESSMENT: 1. Acute lower gastrointestinal bleed with acute blood loss anemia. 2. History of angiomatous malformations. 3. History of coronary artery disease and stenting. 4. Diabetes mellitus, type 2. 5. Hypertension. 6. Hyperlipidemia. 7. History of sleep apnea. RECOMMENDATIONS: Continue current medical management and symptomatic treatment. Otherwise at this time, I recommend repeat labs. Closely follow with Gastroenterology for possible endoscopies and repeat cautery if any AVMs are present. Further recommendations follow. MMODL / IJN: [id number] /
--- NOTE | 2025-06-17 16:38 | P.PCN ---
Date of Procedure: 06/17/25 Procedure(s) Performed: BRIEF HISTORY: Patient is a 84-year-old pleasant white male admitted to hospital with acute lower GI bleed. He had multiple episodes of bright red blood per rectum and drop his hemoglobin from 12 to 11.5 g/dL. He is scheduled for colonoscopy to evaluate for PROCEDURE PERFORMED: Colonoscopy with snare polypectomy. PREOPERATIVE DIAGNOSIS: Acute lower GI bleed. IV sedation per Anesthesia. PROCEDURE: After informed consent was obtained, the patient, was brought into the endoscopy unit. IV sedation was administered by Anesthesia under continuous monitoring. Digital rectal examination was normal. Initially the Olympus CF-160 flexible video colonoscope was then inserted in the rectum, gradually advanced into the cecum without any difficulty. Careful examination was performed as the scope was gradually being withdrawn. Ileocecal valve and the appendiceal orifice were visualized and appeared normal. Prep was excellent. No active bleeding noted. Mucosa of the cecum, ascending colon, appeared normal. The hepatic flexure there was a 1.5 cm broad-based polyp that was removed by hot snare polypectomy. Rest of the transverse colon, descending colon, sigmoid colon, and rectum appeared normal. In the proximal rectum there was a 5 mm polyp removed by cold snare polypectomy. Moderate sigmoid diverticulosis seen. Retroflexion was performed in the rectum and no lesions were seen. The patient tolerated the procedure well. IMPRESSION: Moderate sigmoid diverticulosis No active bleeding seen 1.5 cm broad-based hepatic flexure polyp status post hot snare polypectomy 5 mm proximal rectal polyp status post cold snare polypectomy RECOMMENDATIONS: Findings of this examination were discussed with the patient.. Recent episode of GI bleed most likely is diverticular in nature which spontaneously resolved. He was advised to follow with the biopsy results. Advance diet as tolerated. Monitor CBC medically stable he can be discharged home tomorrow.
[2025-06-17 16:53] LABS: Glucose,Whole Blood 117 mg/dL (70-110)
[2025-06-17 20:13] LABS: Glucose,Whole Blood 146 mg/dL (70-110)
[2025-06-18 07:16] LABS: Basophils # (A) 0.02 10*3/uL (0.00-0.10); Basophils % (A) 0.3 %; Eosinophils # (A) 0.16 10*3/uL (0.04-0.35); Eosinophils % (A) 2.1 %; HCT 31.9 % (39.6-50.0); HGB 10.5 g/dL (13.0-17.0); Lymphocytes # (A) 1.89 10*3/uL (0.90-5.00); Lymphocytes % (A) 24.6 %; MCH 31.1 pg (27.0-32.0); MCHC 32.9 g/dL (32.0-37.0); MCV 94.4 fL (80.0-97.0); Monocytes # (A) 0.72 10*3/uL (0.20-1.00); Monocytes % (A) 9.4 %; Neutrophils # (A) 4.85 10*3/uL (1.80-7.70); Neutrophils % (A) 62.9 %; Platelet Count 222 10*3/uL (140-440); RBC 3.38 10*6/uL (4.40-5.60); RDW 13.5 % (11.5-14.5); WBC 7.69 10*3/uL (4.50-10.00)
[2025-06-18 07:29] LABS: African American GFR (CKD) >90 (>60 ml/min/1.73 sqM); Anion Gap 9 mmol/L; Blood Urea Nitrogen 14 mg/dL (9-20); Calcium 8.6 mg/dL (8.4-10.2); Carbon Dioxide 22 mmol/L (22-30); Chloride 107 mmol/L (98-107); Glucose 145 mg/dL (74-99); Non-African American GFR(CKD) 80 (>60 ml/min/1.73 sqM); Potassium 3.9 mmol/L (3.5-5.1); Sodium 138 mmol/L (137-145)
[2025-06-18 07:47] LABS: Glucose,Whole Blood 148 mg/dL (70-110)
[2025-06-18] MEDS: ASPIRIN 81 MG PO SCH (09:28)
[2025-06-18 12:17] LABS: Glucose,Whole Blood 123 mg/dL (70-110)
--- NOTE | 2025-06-18 12:36 | P.PN ---
Subjective Progress Note Date: 06/18/25 Patient is an 84-year-old male with past medical history significant for GI bleed, diverticulosis, colon polyps, CAD with previous stent to the RCA, left subclavian artery stenosis with previous stent, carotid artery stenosis. He also sees Dr. Varela in the pulmonary office for severe COPD. He has an FEV1 48% of predicted. Maintained on DuoNebs [id number] as well as Trelegy inhaler. Transferred from [facility] yesterday after for rectal bleeding. Having multiple large bright red bowel movements. He does take aspirin and Plavix at home. Denies any other anticoagulants or NSAIDs. Denies any nausea, vomiting, hematemesis. Denies any abdominal pain. Blood pressures remain stable. Nontachycardic. He has had an additional 2 bright red bowel movements while at our facility. Has not required any blood product transfusions. Hemoglobin stable at 12.4 g/dL. Most recent labs including a CBC with a WBC count of 11.25, hemoglobin 12.4, platelets 258. CMP: Sodium 138, potassium 4.6, chloride 106, serum bicarb 22, BUN 27, creatinine 1, glucose 129. LFTs unremarkable. Normal saline infusing at 75 mm/h. Patient currently being evaluated in the intensive care unit. Resting comfortably on room air. Asymptomatic. Nontachycardic. Blood pressure 119/54 mmHg. Progress note dated June 17, 2025. 84-year-old male seen today in room 261. The patient is on room air. He is not receiving any IV fluids. The patient is alert and awake. He sitting in a chair next to the hospital bed. He is scheduled to have an EGD and colonoscopy today. The patient did have another bowel movement with dark blood in it. Nothing bright. His hemoglobin has been stable. White count of 7.24, hemoglobin 9.3, hematocrit 33.8, platelet count normal. Sodium, potassium, chloride, CO2, anion gap, BUN, creatinine are all normal. Glucose is 138. Calcium is 8.6. The patient is seen today June 18, 2025 in follow-up on the regular medical floor. He is currently sitting up at the bedside. Awake and alert in no acute distress. Maintaining O2 saturations in the 90s on room air. He has normal saline at 75 mL/h. He denies any further bloody bowel movements. Colonoscopy with snare polypectomy performed yesterday. Pathology pending. No active bleeding was noted. White count 7.6. Hemoglobin 10.5. Platelets 222. Sodium 138. Potassium 3.9. Bicarb 22. BUN 14. Creatinine 0.86. Glucose 145. He remains on Symbicort, Spiriva, Singulair and albuterol as needed. No pulmonary complaints. He remains on IV Protonix. Objective - Vital Signs Vital signs: Vital Signs Temp 98 F 06/18/25 07:44 Pulse 67 06/18/25 07:44 Resp 20 06/18/25 07:44 BP 111/61 06/18/25 07:44 Pulse Ox 95 06/18/25 07:44 FiO2 Intake & Output 06/17/25 06/18/25 06/18/25 18:59 06:59 18:59 Intake Total 200 590 240 Balance 200 590 240 Intake: IV 200 Oral 590 240 Other: Voiding Method Toilet # Voids 5 # Bowel Movements 2 - Exam GENERAL EXAM: Alert, active, 84-year-old male, on room air oxygen, comfortable in no apparent distress. HEAD: Normocephalic. EYES: Normal reaction of pupils, equal size. NOSE: Clear with pink turbinates. THROAT: No erythema or exudates. NECK: No masses, no JVD. CHEST: No chest wall deformity. LUNGS: Equal air entry with no crackles, wheeze, rhonchi or dullness. CVS: S1 and S2 normal with no audible murmur, regular rhythm. ABDOMEN: No hepatosplenomegaly, normal bowel sounds, no guarding or rigidity. SPINE: No scoliosis or deformity SKIN: No rashes CENTRAL NERVOUS SYSTEM: No focal deficits, tone is normal in all 4 extremities. EXTREMITIES: There is no peripheral edema. No clubbing, no cyanosis. Peripheral pulses are intact. - Labs CBC & Chem 7: 06/18/25 06:38 06/18/25 06:38 Labs: Abnormal Lab Results - Last 24 Hours (Table) 06/17/25 06/17/25 06/18/25 Range/Units 16:51 20:12 06:38 RBC 3.38 L (4.40-5.60) 10*6/uL Hgb 10.5 L (13.0-17.0) g/dL Hct 31.9 L (39.6-50.0) % Immature Gran # 0.05 H (0.00-0.04) 10*3/uL Glucose (74-99) mg/dL POC Glucose (mg/dL) 117 H 146 H (70-110) mg/dL 06/18/25 06/18/25 06/18/25 Range/Units 06:38 07:45 12:15 RBC (4.40-5.60) 10*6/uL Hgb (13.0-17.0) g/dL Hct (39.6-50.0) % Immature Gran # (0.00-0.04) 10*3/uL Glucose 145 H (74-99) mg/dL POC Glucose (mg/dL) 148 H 123 H (70-110) mg/dL Assessment and Plan Assessment: Acute lower GI bleed. Colonoscopy 06/17/2025 revealed no active bleeding. Snare polypectomy performed. Pathology pending History of diverticulosis. History of colon polyps. History of CAD with previous stent of RCA. History of left subclavian artery stenosis with previous stent. History of carotid artery stenosis. Hypertension. History of hyperlipidemia. Diabetes mellitus type 2. Severe chronic obstructive pulmonary disease, with an FEV1 48% of predicted, not in exacerbation. Plan: The patient was seen and evaluated Labs and medications reviewed Colonoscopy results reviewed Pathology pending No active bleeding Remains on Protonix Stable and on room air oxygen Continued on Symbicort, Spiriva while here Resume home Trelegy at discharge Continue albuterol HFA Continue Singulair This patient was seen independently by the pulmonary nurse practitioner addressing pulmonary issues I have personally seen and examined the patient, performed the documentation and the assessment and plan as written. Number of minutes spent on the visit: 25 Dictation was produced using [employer] software. Please excuse any grammatical, word or spelling errors.
--- NOTE | 2025-06-18 12:54 | P.PN ---
Subjective HISTORY OF PRESENT ILLNESS: Patient is an 84-year-old male with past medical history of diabetes mellitus, hyperlipidemia, hypertension, LUIS CARLOS, CAD S/p prior RCA stenting, left subclavian stenosis s/p stenting in December 2024, GI bleed presented to the ED with GI bleed. Patient reported that he woke up with an urge to defecate. He noticed large amount of bright red blood in the toilet. Patient denies any abdominal pain. He reports using aspirin as well as Plavix at home. He does report a history of GI bleed due to polyps that required cauterization and his last colonoscopy was 5 years ago. Patient seen today under cardiology consultation. He states that his rectal bleeding has stopped and denies any abdominal pain, chest pain, palpitations. Patient denies fever, chills, dizziness, chest pain, dyspnea, significant abdominal pain, N/V, melena, urinary symptoms. Vitals: Temperature 98 F, MD 60 bpm, RR 15, BP 133/59, SpO2 94% on room air Labs hemoglobin 11.2, creatinine 0.96, WBC 7.93, A1c 6.9 PROGRESS NOTE: 06/17/25: Patient seen and examined at bedside today. He denies any new complaints. Vital signs within normal limits Hemoglobin 11.3, Creatinine 0.95 Patient scheduled for colonoscopy for later today. June 18, 2025 Patient is status post colonoscopy yesterday revealing moderate sigmoid div erticulosis with no active bleeding seen. Patient examined this morning at the bedside. He is currently sitting up in a chair. He denies any chest pain or pressure. He denies any shortness of breath. Vital signs are stable. PHYSICAL EXAM: VITAL SIGNS: Reviewed. GENERAL: Well-developed in no acute distress. NECK: Supple. No JVD or thyromegaly LUNGS: Respirations even and unlabored. Lungs essentially clear to auscultation bilaterally. HEART: Regular rate and rhythm. S1 and S2 heard. EXTREMITIES: Normal range of motion. No clubbing or cyanosis. Peripheral pulses intact. No lower extremity edema ASSESSMENT: GI bleed History of GI polyps CAD S/p prior RCA stenting Left subclavian stenosis S/p stenting in December 2024 Diabetes Hypertension Hyperlipidemia PLAN: Resume aspirin 81 mg daily Patient does not need to be resumed on Plavix upon discharge Continue additional cardiac medications including Lipitor, fenofibrate, and metoprolol Patient is currently stable from a cardiac standpoint Patient to follow-up postdischarge in the office Nurse practitioner note has been reviewed by physician. Signing provider agrees with the documented findings, assessment, and plan of care documented by SECURITY PATROL OFFICER as a scribe. Objective - Vital Signs Vital signs: Vital Signs Temp 98 F 06/18/25 07:44 Pulse 67 06/18/25 07:44 Resp 20 06/18/25 07:44 BP 111/61 06/18/25 07:44 Pulse Ox 95 06/18/25 07:44 FiO2 Intake & Output 06/17/25 06/18/25 06/18/25 18:59 06:59 18:59 Intake Total 200 590 240 Balance 200 590 240 Intake: IV 200 Oral 590 240 Other: Voiding Method Toilet # Voids 5 # Bowel Movements 2 - Labs CBC & Chem 7: 06/18/25 06:38 06/18/25 06:38 Labs: Abnormal Lab Results - Last 24 Hours (Table) 06/17/25 06/17/25 06/18/25 Range/Units 16:51 20:12 06:38 RBC 3.38 L (4.40-5.60) 10*6/uL Hgb 10.5 L (13.0-17.0) g/dL Hct 31.9 L (39.6-50.0) % Immature Gran # 0.05 H (0.00-0.04) 10*3/uL Glucose (74-99) mg/dL POC Glucose (mg/dL) 117 H 146 H (70-110) mg/dL 06/18/25 06/18/25 06/18/25 Range/Units 06:38 07:45 12:15 RBC (4.40-5.60) 10*6/uL Hgb (13.0-17.0) g/dL Hct (39.6-50.0) % Immature Gran # (0.00-0.04) 10*3/uL Glucose 145 H (74-99) mg/dL POC Glucose (mg/dL) 148 H 123 H (70-110) mg/dL
--- NOTE | 2025-06-18 13:01 | P.PN ---
Subjective Progress Note Date: 06/18/25 Principal diagnosis: GI bleed This a pleasant 84-year-old male with multiple comorbidities including coronary artery disease with cardiac stent, recent subclavian artery stent placed in December of this year, COPD, diabetes mellitus, hyperlipidemia, hypertension, prostate disorder with history of lower GI bleed about 10 years ago. Patient presented to the emergency department as a transfer from [facility] yesterday evening for lower GI bleed. Patient had multiple episodes of bright red blood per rectum with the last one being yesterday evening around 8 PM. Patient reports it as pressure and then bleeding but denies any abdominal pain or cramping. He is on aspirin 81 mg daily and Plavix 75 mg daily for coronary artery disease and recent subclavian artery stent. Patient states his last colonoscopy was about 5 to 6 years ago. He states that he had a similar episode few years ago where he had bleeding and underwent colonoscopy and was noted to have polyps that were bleeding that he reports was cauterized. He states this was done by Dr. Foley at [facility]. Patient with mild leukocytosis on admission hemoglobin of 12.1 with a drop today to 11.2 and an elevated BUN at 25. Denies any nausea or vomiting. He had no imaging done at [facility] and no imaging done here. Again currently denies any abdominal pain, nausea or vomiting. 06/18/2025 Patient seen and examined today as a follow-up. Yesterday he underwent colo noscopy. He denies any further rectal bleeding. Denies any abdominal pain nausea or vomiting. Hemoglobin stable at 10.5. Patient underwent colonoscopy yesterday with findings of moderate sigmoid diverticulosis with no active bleeding. 1.5 cm broad-based hepatic flexure polyp status post hot snare polypectomy and 5 mm proximal rectal polyp status post cold snare polypectomy. Bleeding likely diverticular in nature. Objective - Vital Signs Vital signs: Vital Signs Temp 98 F 06/18/25 07:44 Pulse 67 06/18/25 07:44 Resp 20 06/18/25 07:44 BP 111/61 06/18/25 07:44 Pulse Ox 95 06/18/25 07:44 FiO2 Intake & Output 06/17/25 06/18/25 06/18/25 18:59 06:59 18:59 Intake Total 200 590 240 Balance 200 590 240 Intake: IV 200 Oral 590 240 Other: Voiding Method Toilet # Voids 5 # Bowel Movements 2 - Exam General appearance: The patient is alert, oriented, appears in no acute distress. HET: Head is normocephalic and atraumatic. Conjunctiva pink. Sclera anicteric. Neck: Supple without lymphadenopathy. Abdomen: Soft, nontender, nondistended. Extremities: Normal skin color and turgor. No pedal edema Skin: No rashes, no jaundice Neurological: No focal deficits. Alert and oriented. - Labs CBC & Chem 7: 06/18/25 06:38 06/18/25 06:38 Labs: Abnormal Lab Results - Last 24 Hours (Table) 06/17/25 06/17/25 06/18/25 Range/Units 16:51 20:12 06:38 RBC 3.38 L (4.40-5.60) 10*6/uL Hgb 10.5 L (13.0-17.0) g/dL Hct 31.9 L (39.6-50.0) % Immature Gran # 0.05 H (0.00-0.04) 10*3/uL Glucose (74-99) mg/dL POC Glucose (mg/dL) 117 H 146 H (70-110) mg/dL 06/18/25 06/18/25 06/18/25 Range/Units 06:38 07:45 12:15 RBC (4.40-5.60) 10*6/uL Hgb (13.0-17.0) g/dL Hct (39.6-50.0) % Immature Gran # (0.00-0.04) 10*3/uL Glucose 145 H (74-99) mg/dL POC Glucose (mg/dL) 148 H 123 H (70-110) mg/dL Assessment and Plan (1) Hematochezia Narrative/Plan: 84-year-old male with painless bright red blood per rectum with reported history of lower GI bleed which she states was secondary to colon polyp which was cauter ized. Need to consider possible diverticular bleed as etiology as well. Will continue to monitor and treat symptomatically currently. Colonoscopy completed with moderate diverticulosis no active bleeding. Bleeding likely secondary diverticular in nature now resolved. Hemoglobin stable. Current Visit: Yes Status: Acute Code(s): K92.1 - MELENA SNOMED Code(s): 905470459 (2) Coronary artery disease Narrative/Plan: On aspirin and Plavix Current Visit: Yes Status: Acute Code(s): I25.10 - ATHSCL HEART DISEASE OF [place] CORONARY ARTERY W/O ANG PCTRS SNOMED Code(s): 08068877 Plan: 1. Continue symptomatic and supportive care 2. Diet as tolerated 3. Patient is status post colonoscopy, likely diverticular bleed now resolved 4. May resume aspirin and Plavix Thank you for this consultation, patient is cleared from gastroenterology for discharge. Dr. Etta Foley I agree with the dictator's note, documented as a scribe by aJsmyn Meadows.
[2025-06-18 13:22] VITALS: BP 110/55; PULSE 56; RESP 22; TEMP 97.9
--- NOTE | 2025-06-21 12:53 | P.DS ---
Providers Date of admission: 06/15/25 15:57 Expected date of discharge: 06/18/25 Attending physician: Damaris Castellanos Consults: 06/15/25 16:38 Consult Physician Routine Consulting Provider: Bird Byers Consult Reason/Comments: cad stent Do you want consulting provider notified?: Yes Consult Physician Routine Consulting Provider: Yuliya Foley Consult Reason/Comments: gi bleed Do you want consulting provider notified?: Yes 06/15/25 17:52 Consult Physician Stat Consulting Provider: Rajat Frazier Consult Reason/Comments: Hematochezia Do you want consulting provider notified?: Already Contacted Primary care physician: Vikas Holcomb Hospital Course: Final diagnosis Acute lower GI bleed with acute blood loss anemia likely diverticular per GI with no active bleeding noted History of angiomatous malformations previously History of coronary artery disease with stenting Diabetes mellitus, type II Hypertension Hyperlipidemia Obesity with a BMI of 30.9 History of sleep apnea Discharge disposition Patient is being discharged in a stable condition with guarded prognosis to home . Patient will follow-up with Dr. Holcomb in the outpatient setting upon discharge. Patient is to continue with current medications and close outpatient follow-up with GI as well as cardiology scheduled. Total time taken is greater than 35 minutes. Hospital course This is a 84-year-old male who was recently admitted with acute lower GI bleed and acute blood loss anemia being closely monitored. Hemoglobin is improved and above 11 and patient is status post endoscopy with GI, likely diverticular in nature. Recommend outpatient follow-up with repeat CBC. Patient does have extensive history of anemia with angiomatous malformations previously. Patient is not having any active bleeding noted and is having bowel movements with no blood noted. Patient reports to feeling well and would like to go home. Patient to continue current diet and slowly advance as tolerated and rec ommending outpatient follow-up. Patient has been cleared by consultations for discharge. Please refer to consultation notes for further HPI. Currently no reports of chest pain, shortness of breath, or palpitations. Patient is afebrile. No reports of nausea or vomiting and patient is tolerating diet. Patient will be discharged home today. Guarded prognosis Physical exam: Gen: This is a 84-year-old male who is awake, alert and oriented x 3, well- developed, elderly appearing, obese HEENT: Head is atraumatic, normocephalic. Pupils equal, round. Sclerae is anicteric. NECK: Supple. No JVD. No lymphadenopathy. No thyromegaly. LUNGS: Diminished breath sounds bilaterally otherwise clear to auscultation. No wheezes or rhonchi. No intercostal retractions. HEART: S1, S2 are muffled ABDOMEN: Soft. Bowel sounds are present. No masses. No tenderness. EXTREMITIES: No pedal edema. No calf tenderness. NEUROLOGICAL: Patient is awake, alert and oriented x3. Cranial nerves 2 through 12 are grossly intact. Please refer to medication reconciliation sheet for a list of medications. The impression and plan of care has been dictated by Cherelle Camargo, Nurse Practitioner as directed. Dr. Emanuel MD I have performed a history and examination and MDM of this patient, discussed the same with the dictator, and agree with the dictator's assessment and plan as written ,documented as a scribe. Based on total visit time, I have performed more than 50% of the visit. Patient Condition at Discharge: Fair Plan - Discharge Summary Discharge Rx Participant: Yes New Discharge Prescriptions: New Pantoprazole Sodium [Protonix] 40 mg PO DAILY #30 tab Continue Cyanocobalamin [Vitamin B-12] 5,000 mcg PO DAILY Ipratropium Alda 0.06%Nasal [Atrovent Nasal 0.06%] 2 spray EA NOSTRIL DAILY Montelukast [Singulair] 10 mg PO HS Aspirin [Adult Low Dose Aspirin EC] 81 mg PO DAILY Simvastatin 40 mg PO DAILY Metoprolol Tartrate 25 mg PO BID Fenofibrate 54 mg PO DAILY Albuterol Sulfate [Proair Hfa] 2 puff INHALATION RT-QID PRN PRN Reason: Shortness Of Breath Cetirizine HCl [Zyrtec] 10 mg PO DAILY PRN PRN Reason: Allergy Symptoms metFORMIN HCL [Glucophage] 750 mg PO DAILY Nitroglycerin Sl Tabs [Nitrostat] 0.4 mg SUBLINGUAL Q5M PRN PRN Reason: Chest Pain Levothyroxine Sodium [Synthroid] 50 mcg PO DAILY Mv-Min/Folic/K1/Lycopen/Lutein [Centrum Silver Men Tablet] 1 tab PO DAILY Fluticasone/Umeclidin/Vilanter [Trelegy Ellipta 100-62.5-25] 1 puff INHALATION RT-DAILY metFORMIN HCL [Glucophage] 500 mg PO HS Discontinued Meloxicam 15 mg PO DAILY PRN PRN Reason: Pain Clopidogrel [Plavix] 75 mg PO DAILY Discharge Medication List Albuterol Sulfate [Proair Hfa] 2 puff INHALATION RT-QID PRN 02/25/18 [History] Aspirin [Adult Low Dose Aspirin EC] 81 mg PO DAILY 02/25/18 [History] Cyanocobalamin [Vitamin B-12] 5,000 mcg PO DAILY 02/25/18 [History] Fenofibrate 54 mg PO DAILY 02/25/18 [History] Ipratropium Alda 0.06%Nasal [Atrovent Nasal 0.06%] 2 spray EA NOSTRIL DAILY 02/25/18 [History] Metoprolol Tartrate 25 mg PO BID 02/25/18 [History] Montelukast [Singulair] 10 mg PO HS 02/25/18 [History] Simvastatin 40 mg PO DAILY 02/25/18 [History] Fluticasone/Umeclidin/Vilanter [Trelegy Ellipta 100-62.5-25] 1 puff INHALATION RT-DAILY 01/02/25 [History] Cetirizine HCl [Zyrtec] 10 mg PO DAILY PRN 06/15/25 [History] Levothyroxine Sodium [Synthroid] 50 mcg PO DAILY 06/15/25 [History] Mv-Min/Folic/K1/Lycopen/Lutein [Centrum Silver Men Tablet] 1 tab PO DAILY 06/15/25 [History] Nitroglycerin Sl Tabs [Nitrostat] 0.4 mg SUBLINGUAL Q5M PRN 06/15/25 [History] metFORMIN HCL [Glucophage] 500 mg PO HS 06/15/25 [History] metFORMIN HCL [Glucophage] 750 mg PO DAILY 06/15/25 [History] Pantoprazole Sodium [Protonix] 40 mg PO DAILY #30 tab 06/18/25 [Rx] Follow up Appointment(s)/Referral(s): Vikas Holcomb MD [Primary Care Provider] - 1-2 days Yuliya Foley MD [STAFF PHYSICIAN] - 1 Week Ambulatory/Diagnostic Orders: Complete Blood Count w/diff [LAB.AMB] Time Frame: 3 Days, Location: None Selected Patient Instructions/Handouts: Pantoprazole (By mouth), Gastrointestinal Bleeding (ED) Activity/Diet/Wound Care/Special Instructions: Activity limited until follow-up Follow-up with primary care provider Follow-up with cardiology outpatient Follow-up with GI outpatient Continue holding Plavix until follow-up with GI Discharge Disposition: HOME SELF-CARE
== END 2025-06-18 15:43 | disposition home or self-care (01) | DRG 378 ==
LOC: EC 14:17 → 2SICU 15:57 → 5NMEDONC 06-17 18:45
PROVIDERS: ADMIT Hospitalist; ATTEND Hospitalist
PROC: 0DBL8ZX Excision of Transverse Colon, Via Natural or Artificial Opening Endoscopic, Diagnostic (ICD-10-PCS; 2025-06-17)
PROC: 0DBP8ZX Excision of Rectum, Via Natural or Artificial Opening Endoscopic, Diagnostic (ICD-10-PCS; principal; 2025-06-17 09:20)
DX: K57.31 Diverticulosis of large intestine without perforation or abscess with bleeding (principal); D62 Acute posthemorrhagic anemia; E11.9 Type 2 diabetes mellitus without complications; I10 Essential (primary) hypertension; E78.5 Hyperlipidemia, unspecified; D72.829 Elevated white blood cell count, unspecified; J44.9 Chronic obstructive pulmonary disease, unspecified; K63.5 Polyp of colon; I25.10 Atherosclerotic heart disease of native coronary artery without angina pectoris; K62.1 Rectal polyp; Z79.1 Long term (current) use of non-steroidal anti-inflammatories (NSAID); Z79.84 Long term (current) use of oral hypoglycemic drugs; Z87.891 Personal history of nicotine dependence; Z79.82 Long term (current) use of aspirin; Z79.890 Hormone replacement therapy; Z79.899 Other long term (current) drug therapy; Z79.02 Long term (current) use of antithrombotics/antiplatelets; Z95.5 Presence of coronary angioplasty implant and graft
CPT/HCPCS: 36415; 45385; 71045; 80048; 80053; 82272; 83036; 85025; 85027; 85610; 85730; 86900; 86901; 88305; 93306; 94640; 96361; 96374; 99285